=== PATIENT | female | born 1945 | race Caucasian/White ===

== ENCOUNTER 2022-11-30 09:33 | Inpatient (IN) ==
--- NOTE | 2022-11-30 10:03 | Emergency Department Note ---
Impression & Plan Acute alteration in mental status, COVID-19, Urinary tract infection ED Provider Note NAME: ELEAZAR HOPKINS AGE: 76 SEX: F : 1945 ARRIVES VIA: Walk-In INFORMANT: Patient, ED PROVIDER(S): Sheldon Burt DO CHIEF COMPLAINT: Weakness HPI: The patient is a 76-year-old female who presented to the emergency department for an evaluation of generalized weakness and cough. The patient was at her normal baseline health yesterday but overnight she started having problems with cough and generalized weakness. She has had difficulty ambu lating. There was a reported fall but this was not witnessed. The patient denies having any back pain or abdominal pain. The patient denies having any fevers but she has had a productive cough. She does complain of some difficulty breathing. Her family members who present with her also feel that she is off her baseline mental status. ROS: See above HPI for pertinent positives & negatives. A total of 10 systems reviewed and were otherwise negative. PAST MEDICAL HISTORY: See Below PAST SURGICAL HISTORY: See Below FAMILY HISTORY: See Below SOCIAL HISTORY: See Below HOME MEDICATIONS: See Below ALLERGIES: See Below VITALS: See Below PHYSICAL EXAMINATION: GENERAL: The patient is awake to verbal commands. She does appear to be somewhat listless and tired. EYES: The conjunctivae are clear. The pupils are round and reactive. EARS, NOSE, MOUTH AND THROAT: The nose is without any evidence of any deformity. Mucous membranes are dry. NECK: The neck is nontender and supple. RESPIRATORY: Shallow respirations were noted. Diminished breath sounds are noted in the left lung field. There is no tachypnea or conversational dyspnea. CARDIOVASCULAR: Regular rate and rhythm noted there no murmurs rubs or gallops normal S1 normal S2. GASTROINTESTINAL: The abdomen is soft. Abdomen is nontender. BACK: No midline tenderness or or step-off noted range of motion in flexion extension as well as rotation no signs of muscle spasm noted MUSCULOSKELETAL/EXTREMITIES: There is no evidence of gross deformity full range of motion is noted in the hips and shoulders. SKIN: Skin is warm and dry. Trace pedal edema was noted bilaterally. NEUROLOGIC: Patient is awake and oriented to person and place. She does recognize her family members. Strength was diminished but symmetric. Gait was shuffling. MEDICAL DECISION MAKING: The patient is a 76-year-old female who presented to the emergency department for an evaluation of altered mental status. The patient presented with family members. They noticed that she was very confused compared to baseline. The patient also has a reported fall from last night. This was not witnessed. The patient was awake and alert but does not appear to be at baseline according to family risk. I discussed the patient's laboratory and radiographic studies with the family. Given her ongoing confusion I also discussed her condition with the on-call [facility] hospitalist. They have agreed to evaluate the patient in the emergency department for further management and disposition. The patient was not significantly hypoxic. Triage Nursing notes reviewed. Prior medical records reviewed Vital Signs: reviewed and remarkable for no significant abnormalities Differential diagnosis: Infection, dehydration, metabolic abnormality, hypo/hyperglycemia, electrolyte disturbance, anemia, hypoxia, cardiac sources, intracerebral event, toxicologic, neurologic, as well as other pathologies. ER treatment provided: See below Diagnostics interpreted by me: ECG: EKG was obtained in the emergency department. My interpretation is normal sinus rhythm at 74 bpm. There was no ectopy. Inferior and low lateral ST depressions were noted. This was compared to a tracing from September 17, 2004. [address] abnormalities were noted on the previous tracing. Cardiac Monitoring: An order was placed for continuous cardiac monitoring. The monitor shows a rate of 73 bpm with sinus rhythm. Laboratory studies: As stated above and show below. Imaging studies: See below. Radiographic imaging was reviewed by myself Consultation(s): I discussed this case with Dr. Griffin who was on-call for the [facility] hospitalist group. Past Med/Surg History Medical History History of colon polyps History of COVID-19 01/2020 [place]; congestion, body aches; denies lingering symptoms Orbital mass Rt - being monitored Overactive bladder Surgical History History of arthroscopic knee surgery History of colonoscopy History of hysterectomy Family History Father Lung cancer Aunt Breast cancer Mother Hypertension Denies family history of Ovarian cancer Prostate cancer Diabetes Myocardial infarction Colorectal cancer Social History Smoking Status: Never smoker Second Hand Exposure: No; Do You Dip or Chew Tobacco: No; Hx Alcohol Use: No Hx Substance Use: No Preferred Language: French Communication Ability: Effective Visual Impairment: Limited Hearing Ability: Normal Tyre Builder Required: No Beliefs That Will Affect Care: None marital status: Current Living Situation: Alone current occupational status: retired How many Children do You have: 3 Feels Safe at Home: Yes Childhood Exposure to Second-Hand Smoke: Yes Diet: regular caffeine: Yes (coffee) during the past year weight has: remained stable Dental Care, Regularly: Yes Physical Activity Frequency: 1-2 Times per Week Seatbelt Use: always Sunscreen Use: No Assistive Devices: Denture - Upper, Denture - Lower and Glasses Allergies Allergies Allergy/AdvReac Type Severity Reaction Status Date / Time No Known Allergies Allergy Verified 09/13/22 14:35 Home Meds Home Medications Medication Instructions Recorded Confirmed ibuprofen 200 mg tablet 200 mg PO Q6H PRN Pain 09/27/19 11/30/22 loteprednol etabonate 0.5 % eye 1 drp ophthalmic (eye) QID 03/03/20 11/30/22 gel drops (Lotemax) travoprost (benzalkonium) 0.004 % 1 drp ophthalmic (eye) DAILY 03/03/20 11/30/22 eye drops aspirin 81 mg tablet,delayed 81 mg PO QAM 06/16/20 11/30/22 release latanoprost 0.005 % eye drops 1 drp ophthalmic (eye) QPM 09/02/21 11/30/22 Previous Rx's Medication Instructions Recorded oxybutynin chloride 5 mg 5 mg PO QAM #90 tabs 12/16/21 tablet,extended release 24 hr donepezil 10 mg tablet 10 mg PO QAM #90 tabs 03/08/22 escitalopram oxalate 5 mg tablet 5 mg PO DAILY #90 tabs 03/17/22 hydrochlorothiazide 25 mg tablet 25 mg PO QAM #30 tabs 06/14/22 triamcinolone acetonide 0.1 % 1 applic topical BID PRN itching 06/30/22 topical cream #80 grams memantine 10 mg tablet 10 mg PO BID 90 days #180 tabs 09/13/22 losartan 50 mg tablet 50 mg PO QAM #90 tabs 10/31/22 atorvastatin 20 mg tablet 20 mg PO QPM #90 tabs 11/28/22 Results & Data (ED) Vital Signs Vital Signs - 24 hr 11/30/22 09:34 11/30/22 09:49 11/30/22 11:31 Temperature 37.4 C Temperature Source Temporal Artery Scan Pulse Rate 84 79 Pulse Rate [Right Finger] 63 Respiratory Rate 16 16 Respiratory Effort / Characteristics Non-Labored Spontaneous Non-Labored Spontaneous Respiratory Depth Normal Normal Respiratory Pattern Regular Regular Blood Pressure 116/72 Blood Pressure [Right Arm] 114/64 Blood Pressure Mean 86 Blood Pressure Mean [Right Arm] 80 Blood Pressure Position Sitting Blood Pressure Position [Right Arm] Lying Pulse Oximetry 96 92 Oxygen Delivery Method Room Air Room Air Sepsis Recent Fever Within 48 Hours No Sepsis New/Unexplained Change in Mental Status N/A Sepsis Action Taken by Nursing No Action Required 11/30/22 10:06 11/30/22 10:15 11/30/22 10:30 Temperature Temperature Source Pulse Rate 87 74 Pulse Rate [Right Finger] Respiratory Rate 18 20 Respiratory Effort / Characteristics Respiratory Depth Respiratory Pattern Blood Pressure 121/78 100/66 102/65 Blood Pressure [Right Arm] Blood Pressure Mean 98 75 80 Blood Pressure Mean [Right Arm] Blood Pressure Position Blood Pressure Position [Right Arm] Pulse Oximetry 94 93 95 Oxygen Delivery Method Sepsis Recent Fever Within 48 Hours Sepsis New/Unexplained Change in Mental Status Sepsis Action Taken by Nursing 11/30/22 10:45 11/30/22 11:01 11/30/22 11:15 Temperature Temperature Source Pulse Rate 68 63 65 Pulse Rate [Right Finger] Respiratory Rate 22 22 20 Respiratory Effort / Characteristics Respiratory Depth Respiratory Pattern Blood Pressure 103/68 117/72 104/61 Blood Pressure [Right Arm] Blood Pressure Mean 72 92 75 Blood Pressure Mean [Right Arm] Blood Pressure Position Blood Pressure Position [Right Arm] Pulse Oximetry 95 93 93 Oxygen Delivery Method Sepsis Recent Fever Within 48 Hours Sepsis New/Unexplained Change in Mental Status Sepsis Action Taken by Nursing 11/30/22 11:30 11/30/22 11:31 11/30/22 11:45 Temperature Temperature Source Pulse Rate 65 65 Pulse Rate [Right Finger] Respiratory Rate 20 16 Respiratory Effort / Characteristics Respiratory Depth Respiratory Pattern Blood Pressure 113/68 114/64 123/71 Blood Pressure [Right Arm] Blood Pressure Mean 84 76 86 Blood Pressure Mean [Right Arm] Blood Pressure Position Blood Pressure Position [Right Arm] Pulse Oximetry 92 94 Oxygen Delivery Method Sepsis Recent Fever Within 48 Hours Sepsis New/Unexplained Change in Mental Status Sepsis Action Taken by Nursing 11/30/22 12:00 11/30/22 12:15 11/30/22 14:06 Temperature Temperature Source Pulse Rate 67 68 Pulse Rate [Right Finger] 73 Respiratory Rate 20 22 16 Respiratory Effort / Characteristics Non-Labored Spontaneous Respiratory Depth Normal Respiratory Pattern Blood Pressure 129/85 131/78 Blood Pressure [Right Arm] 114/72 Blood Pressure Mean 101 93 Blood Pressure Mean [Right Arm] 86 Blood Pressure Position Blood Pressure Position [Right Arm] Lying Pulse Oximetry 95 93 93 Oxygen Delivery Method Room Air Sepsis Recent Fever Within 48 Hours Sepsis New/Unexplained Change in Mental Status Sepsis Action Taken by Nursing 11/30/22 14:09 Temperature Temperature Source Pulse Rate 73 Pulse Rate [Right Finger] Respiratory Rate Respiratory Effort / Characteristics Respiratory Depth Respiratory Pattern Blood Pressure Blood Pressure [Right Arm] Blood Pressure Mean Blood Pressure Mean [Right Arm] Blood Pressure Position Blood Pressure Position [Right Arm] Pulse Oximetry Oxygen Delivery Method Sepsis Recent Fever Within 48 Hours Sepsis New/Unexplained Change in Mental Status Sepsis Action Taken by Prison Medications Current Medication List: was personally reviewed by me Laboratory Data Attestation: I reviewed the patient's lab results. 11/30/22 10:00 11/30/22 10:00 Lab Results 11/30/22 11/30/22 11/30/22 Range/Units 10:00 10:00 10:00 WBC 8.28 (4.8-10.8) K/ul RBC 4.58 (4.20-5.40) M/uL Hgb 13.6 (12.0-16.0) g/dl Hct 39.6 (37.0-47.0) % MCV 86.5 (80.0-100.0) fL MCH 29.7 (25.0-34.0) pg MCHC 34.3 (32.0-36.0) g/dL RDW Std Deviation 40.7 (36.4-46.3) fL RDW Coeff of González 13.0 (11.5-14.5) % Plt Count 294 (130-400) K/uL MPV 9.7 (9.4-12.4) fL Immature Gran % (Auto) 0.4 % Neut % (Auto) 77.1 % Lymph % (Auto) 13.4 % [place] % (Auto) 8.8 % Eos % (Auto) 0.1 % Baso % (Auto) 0.2 % Neut # (Auto) 6.38 (1.40-6.50) K/uL Lymph # (Auto) 1.11 L (1.20-3.40) K/uL [place] # (Auto) 0.73 H (0.11-0.59) K/uL Eos # (Auto) 0.01 (0.00-0.50) K/uL Baso # (Auto) 0.02 (0.00-0.20) K/uL Immature Gran # (Auto) 0.03 (0.01-0.20) K/uL PT (9.0-12.0) Seconds INR (0.9-1.1) APTT (21.0-31.0) Seconds PTT Ratio VBG pH (7.36-7.41) VBG pCO2 (38-50) mmHg VBG pO2 mmHg VBG HCO3 mmol/L VBG O2 Saturation % VBG Base Excess mEq/L Sodium 137 (136-145) mmol/L Potassium 3.3 L (3.5-5.1) mmol/L Chloride 99 (98-107) mmol/L Carbon Dioxide 28 (21-32) mmol/L Anion Gap 10 (3-11) BUN 14 (6-23) mg/dl Creatinine 0.72 (0.6-1.2) mg/dl Est Cr Clr Drug Dosing 92.2 ml/min Est GFR ( Amer) 93.6 ml/min Est GFR (Non-Af Amer) 80.8 ml/min BUN/Creatinine Ratio 19.4 (10-20) Glucose 121 H (70-99(Fasting)) mg/dl Lactate 2.5 H* (0.4-2.0) mmol/L Calcium 9.4 (8.6-10.3) mg/dl Magnesium 1.9 (1.7-2.4) mg/dl Total Bilirubin 0.7 (0.2-1.0) mg/dl Direct Bilirubin 0.1 (0-0.2) mg/dl AST 21 (13-39) U/L ALT 17 (7-52) U/L Alkaline Phosphatase 94 (34-104) U/L Troponin I High Sens 10.7 (0-14) pg/ml Total Protein 7.5 (6.0-8.3) gm/dl Albumin 4.2 (3.4-5.0) gm/dl Procalcitonin (0-0.5) ng/ml Urine Color Urine Appearance (Clear) Urine pH (4.5-7.5) Ur Specific [place] (1.000-1.030) Urine Protein (Negative) Urine Glucose (UA) (Negative) Urine Ketones (Negative) Urine Blood (Negative) Urine Nitrite (Negative) Urine Bilirubin (Negative) Urine Urobilinogen (Negative) Ur Leukocyte Esterase (Negative) Urine WBC (Auto) (0-5) /hpf Urine RBC (Auto) (0-4) /hpf U Hyaline Cast (Auto) (0-5) /lpf U Epithel Cells (Auto) (0-5) /lpf Urine Bacteria (Auto) (Negative) Urine Mucus (None Prsent) Urine Yeast Adenovirus (PCR) (NotDetected) B. pertussis DNA (PCR) (NotDetected) B.parapertussis DNA PCR (NotDetected) C. pneumoniae DNA (PCR) (NotDetected) Coronavirus OC43 (PCR) (NotDetected) Coronavirus HKU1 (PCR) (NotDetected) Coronavirus 229E (PCR) (NotDetected) SARS-CoV-2 (PCR) (NotDetected) Coronavirus NL63 (PCR) (NotDetected) Human Metapneumovir PCR (NotDetected) Influenza Type A (PCR) (NotDetected) Influenza Type B (PCR) (NotDetected) M. pneumoniae (PCR) (NotDetected) Parainfluenza 1 (PCR) (NotDetected) Parainfluenza 2 (PCR) (NotDetected) Parainfluenza 3 (PCR) (NotDetected) Parainfluenza 4 (PCR) (NotDetected) RSV (PCR) (NotDetected) Entero/Rhino (PCR) (NotDetected) 11/30/22 11/30/22 11/30/22 Range/Units 10:00 10:00 10:09 WBC (4.8-10.8) K/ul RBC (4.20-5.40) M/uL Hgb (12.0-16.0) g/dl Hct (37.0-47.0) % MCV (80.0-100.0) fL MCH (25.0-34.0) pg MCHC (32.0-36.0) g/dL RDW Std Deviation (36.4-46.3) fL RDW Coeff of González (11.5-14.5) % Plt Count (130-400) K/uL MPV (9.4-12.4) fL Immature Gran % (Auto) % Neut % (Auto) % Lymph % (Auto) % [place] % (Auto) % Eos % (Auto) % Baso % (Auto) % Neut # (Auto) (1.40-6.50) K/uL Lymph # (Auto) (1.20-3.40) K/uL [place] # (Auto) (0.11-0.59) K/uL Eos # (Auto) (0.00-0.50) K/uL Baso # (Auto) (0.00-0.20) K/uL Immature Gran # (Auto) (0.01-0.20) K/uL PT 11.8 (9.0-12.0) Seconds INR 1.1 (0.9-1.1) APTT 26.3 (21.0-31.0) Seconds PTT Ratio 0.9 VBG pH 7.46 H (7.36-7.41) VBG pCO2 42 (38-50) mmHg VBG pO2 37 mmHg VBG HCO3 30 mmol/L VBG O2 Saturation 66.1 % VBG Base Excess 5.4 mEq/L Sodium (136-145) mmol/L Potassium (3.5-5.1) mmol/L Chloride (98-107) mmol/L Carbon Dioxide (21-32) mmol/L Anion Gap (3-11) BUN (6-23) mg/dl Creatinine (0.6-1.2) mg/dl Est Cr Clr Drug Dosing ml/min Est GFR ( Amer) ml/min Est GFR (Non-Af Amer) ml/min BUN/Creatinine Ratio (10-20) Glucose (70-99(Fasting)) mg/dl Lactate (0.4-2.0) mmol/L Calcium (8.6-10.3) mg/dl Magnesium (1.7-2.4) mg/dl Total Bilirubin (0.2-1.0) mg/dl Direct Bilirubin (0-0.2) mg/dl AST (13-39) U/L ALT (7-52) U/L Alkaline Phosphatase (34-104) U/L Troponin I High Sens (0-14) pg/ml Total Protein (6.0-8.3) gm/dl Albumin (3.4-5.0) gm/dl Procalcitonin < 0.05 (0-0.5) ng/ml Urine Color Urine Appearance (Clear) Urine pH (4.5-7.5) Ur Specific [place] (1.000-1.030) Urine Protein (Negative) Urine Glucose (UA) (Negative) Urine Ketones (Negative) Urine Blood (Negative) Urine Nitrite (Negative) Urine Bilirubin (Negative) Urine Urobilinogen (Negative) Ur Leukocyte Esterase (Negative) Urine WBC (Auto) (0-5) /hpf Urine RBC (Auto) (0-4) /hpf U Hyaline Cast (Auto) (0-5) /lpf U Epithel Cells (Auto) (0-5) /lpf Urine Bacteria (Auto) (Negative) Urine Mucus (None Prsent) Urine Yeast Adenovirus (PCR) (NotDetected) B. pertussis DNA (PCR) (NotDetected) B.parapertussis DNA PCR (NotDetected) C. pneumoniae DNA (PCR) (NotDetected) Coronavirus OC43 (PCR) (NotDetected) Coronavirus HKU1 (PCR) (NotDetected) Coronavirus 229E (PCR) (NotDetected) SARS-CoV-2 (PCR) (NotDetected) Coronavirus NL63 (PCR) (NotDetected) Human Metapneumovir PCR (NotDetected) Influenza Type A (PCR) (NotDetected) Influenza Type B (PCR) (NotDetected) M. pneumoniae (PCR) (NotDetected) Parainfluenza 1 (PCR) (NotDetected) Parainfluenza 2 (PCR) (NotDetected) Parainfluenza 3 (PCR) (NotDetected) Parainfluenza 4 (PCR) (NotDetected) RSV (PCR) (NotDetected) Entero/Rhino (PCR) (NotDetected) 11/30/22 11/30/22 11/30/22 Range/Units 10:14 12:04 13:30 WBC (4.8-10.8) K/ul RBC (4.20-5.40) M/uL Hgb (12.0-16.0) g/dl Hct (37.0-47.0) % MCV (80.0-100.0) fL MCH (25.0-34.0) pg MCHC (32.0-36.0) g/dL RDW Std Deviation (36.4-46.3) fL RDW Coeff of González (11.5-14.5) % Plt Count (130-400) K/uL MPV (9.4-12.4) fL Immature Gran % (Auto) % Neut % (Auto) % Lymph % (Auto) % [place] % (Auto) % Eos % (Auto) % Baso % (Auto) % Neut # (Auto) (1.40-6.50) K/uL Lymph # (Auto) (1.20-3.40) K/uL [place] # (Auto) (0.11-0.59) K/uL Eos # (Auto) (0.00-0.50) K/uL Baso # (Auto) (0.00-0.20) K/uL Immature Gran # (Auto) (0.01-0.20) K/uL PT (9.0-12.0) Seconds INR (0.9-1.1) APTT (21.0-31.0) Seconds PTT Ratio VBG pH (7.36-7.41) VBG pCO2 (38-50) mmHg VBG pO2 mmHg VBG HCO3 mmol/L VBG O2 Saturation % VBG Base Excess mEq/L Sodium (136-145) mmol/L Potassium (3.5-5.1) mmol/L Chloride (98-107) mmol/L Carbon Dioxide (21-32) mmol/L Anion Gap (3-11) BUN (6-23) mg/dl Creatinine (0.6-1.2) mg/dl Est Cr Clr Drug Dosing ml/min Est GFR ( Amer) ml/min Est GFR (Non-Af Amer) ml/min BUN/Creatinine Ratio (10-20) Glucose (70-99(Fasting)) mg/dl Lactate 1.9 (0.4-2.0) mmol/L Calcium (8.6-10.3) mg/dl Magnesium (1.7-2.4) mg/dl Total Bilirubin (0.2-1.0) mg/dl Direct Bilirubin (0-0.2) mg/dl AST (13-39) U/L ALT (7-52) U/L Alkaline Phosphatase (34-104) U/L Troponin I High Sens (0-14) pg/ml Total Protein (6.0-8.3) gm/dl Albumin (3.4-5.0) gm/dl Procalcitonin (0-0.5) ng/ml Urine Color Yellow Urine Appearance Cloudy A (Clear) Urine pH 6.5 (4.5-7.5) Ur Specific [place] 1.019 (1.000-1.030) Urine Protein Negative (Negative) Urine Glucose (UA) Negative (Negative) Urine Ketones Negative (Negative) Urine Blood Negative (Negative) Urine Nitrite Negative (Negative) Urine Bilirubin Negative (Negative) Urine Urobilinogen Negative (Negative) Ur Leukocyte Esterase 2+ H (Negative) Urine WBC (Auto) >30 H (0-5) /hpf Urine RBC (Auto) 0-4 (0-4) /hpf U Hyaline Cast (Auto) 1-5 (0-5) /lpf U Epithel Cells (Auto) >30 H (0-5) /lpf Urine Bacteria (Auto) 1+ H (Negative) Urine Mucus Present A (None Prsent) Urine Yeast Not Reportable Adenovirus (PCR) Not Detected (NotDetected) B. pertussis DNA (PCR) Not Detected (NotDetected) B.parapertussis DNA PCR Not Detected (NotDetected) C. pneumoniae DNA (PCR) Not Detected (NotDetected) Coronavirus OC43 (PCR) Not Detected (NotDetected) Coronavirus HKU1 (PCR) Not Detected (NotDetected) Coronavirus 229E (PCR) Not Detected (NotDetected) SARS-CoV-2 (PCR) DETECTED A* (NotDetected) Coronavirus NL63 (PCR) Not Detected (NotDetected) Human Metapneumovir PCR Not Detected (NotDetected) Influenza Type A (PCR) Not Detected (NotDetected) Influenza Type B (PCR) Not Detected (NotDetected) M. pneumoniae (PCR) Not Detected (NotDetected) Parainfluenza 1 (PCR) Not Detected (NotDetected) Parainfluenza 2 (PCR) Not Detected (NotDetected) Parainfluenza 3 (PCR) Not Detected (NotDetected) Parainfluenza 4 (PCR) Not Detected (NotDetected) RSV (PCR) Not Detected (NotDetected) Entero/Rhino (PCR) Not Detected (NotDetected) Administered Medications Acetaminophen (Acetaminophen 325 Mg Tab) 650 mg PO Q4H PRN PRN Reason: pain/fever Stop: 12/30/22 13:05 Last Admin: 11/30/22 13:38 Dose: 650 mg Documented By: CPB Discontinued Medications Sodium Chloride (Nss) 1,000 mls @ 999 mls/hr IV .Q1H1M ONE Stop: 11/30/22 12:13 Last Infusion: 11/30/22 12:34 Dose: 0 mls/hr Documented By: Admin: 11/30/22 11:27 Dose: 999 mls/hr Documented By: CPB Lidocaine (Lidocaine 5% 1 Patch) 1 patch TD NOW STA Stop: 11/30/22 13:07 Last Admin: 11/30/22 13:40 Dose: 1 patch Documented By: CPB Imaging Data Attestation: I personally reviewed and interpreted this imaging study as follows: My Impression: CT of the brain was obtained in the emergency department. My interpretation is no intracranial hemorrhage or mass effect, final report below 1 view chest x-ray was obtained in the emergency department. My interpretation is no free air or definite infiltrate, final report below. Radiologist's Impression: Cervical Spine CT 11/30/22 09:43 CT OF THE CERVICAL SPINE WITHOUT CONTRAST CLINICAL HISTORY: Fall. COMPARISON STUDY: No previous studies for comparison. TECHNIQUE: Helical axial images of the cervical spine were obtained without IV contrast. Sagittal and coronal reconstructions were viewed. Automated exposure control was utilized for the study. A dose lowering technique was utilized adhe ring to the principles of ALARA. FINDINGS: There is reversal of the cervical lordosis. No acute cervical spine fracture is noted. Severe multilevel facet arthrosis is present. Moderate multilevel degenerative disc disease most pronounced at C6-C7. Degenerative changes at the C1-C2 articulation are noted. There is no prevertebral edema. IMPRESSION: No acute cervical spine fracture or subluxation. ACT 112: Negative or not required by law. Electronically signed by: Rupesh Huntley M.D. 11/30/2022 11:16 AM Chest X-Ray 11/30/22 09:43 XR chest 1V portable HISTORY: 76 years-old Female Sepsis acute sepsis COMPARISON: None TECHNIQUE: AP view of the chest FINDINGS: Cardiac silhouette is mildly enlarged. No pneumothorax, pleural effusion, airspace consolidation or pulmonary edema. Bones of the chest appear grossly intact. IMPRESSION: No acute process. ACT 112: Negative or not required by law. The above report was generated using voice recognition software. It may contain grammatical, syntax or spelling errors. Electronically signed by: Fracisco Montenegro M.D. 11/30/2022 10:[address] 11/30/22 09:43 CT head/brain wo con CLINICAL HISTORY: 76 years-old Female with fall. Acute head trauma status post fall TECHNIQUE: Multiple axial CT images of the head were obtained without contrast. A dose lowering technique was utilized adhering to the principles of ALARA. CT DOSE: 1079.62 mGy.cm COMPARISON: CT cervical spine of same day FINDINGS: No acute intracranial hemorrhage, midline shift, intracranial mass, hydrocephalus, territorial ischemia or abnormal extra-axial collection. Involutional changes with white matter hypodensities suggestive of chronic microvascular ischemic disease. Senescent calcifications of the basal ganglia. The calvarium is intact. Mild mucosal thickening of the ethmoid air cells. Hypoplastic frontal sinuses. Clear mastoid air cells. Prior bilateral lens repair. IMPRESSION: No acute intracranial abnormality or calvarial fracture. ACT 112: Negative or not required by law. The above report was generated using voice recognition software. It may contain grammatical, syntax or spelling errors. Electronically signed by: Fracisco Montenegro M.D. 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 No acute fracture, dislocation or avascular necrosis. Unremarkable soft tissues. IMPRESSION: No acute fracture or dislocation. ACT 112: Negative or not required by law. The above report was generated using voice recognition software. It may contain grammatical, syntax or spelling errors. Electronically signed by: Fracisco Montenegro M.D. 11/30/2022 10:56 AM Discharge Plan Visit Data Chief Complaint: Illness Stated Complaint: CANT WALK,AMS,COUGHING,FELL X2,URINATING HERSELF ED Provider: Sheldon Burt Discharge Problem: Acute alteration in mental status, COVID-19, Urinary tract infection Patient Disposition: Being Evaluated by Hospitalist Forms Stand Alone Forms: [facility] Prescriptions Prescriptions: No Action oxybutynin chloride 5 mg tablet extended release 24hr 5 mg PO QAM Qty: 90 3RF escitalopram oxalate 5 mg tablet 5 mg PO DAILY Qty: 90 1RF hydrochlorothiazide 25 mg tablet 25 mg PO QAM Qty: 30 11RF losartan 50 mg tablet 50 mg PO QAM Qty: 90 3RF atorvastatin 20 mg tablet 20 mg PO QPM Qty: 90 3RF ibuprofen 200 mg tablet 200 mg PO Q6H PRN (Reason: Pain) travoprost (benzalkonium) 0.004 % drops 1 drp ophthalmic (eye) DAILY Lotemax 0.5 % drops,gel 1 drp ophthalmic (eye) QID Rx Instructions: three timmes a week latanoprost 0.005 % drops 1 drp ophthalmic (eye) QPM donepezil 10 mg tablet 10 mg PO QAM Qty: 90 3RF triamcinolone acetonide 0.1 % cream 1 applic topical BID PRN (Reason: itching) Qty: 80 5RF memantine 10 mg tablet 10 mg PO BID 90 Days Qty: 180 3RF aspirin 81 mg Tablet,Delayed Release (Dr/Ec) 81 mg PO QAM Referrals Referrals: Cherrie Montanez MD [Primary Care Provider] -
[2022-11-30 10:24] LABS: Base Excess VBG 5.4 mEq/L; HCO3 VBG 30 mmol/L; Oxygen Saturation VBG 66.1 %; PCO2 VBG 42 mmHg (38-50); PO2 VBG 37 mmHg; pH VBG 7.46 (7.36-7.41)
[2022-11-30 10:31] LABS: Basophils # (auto) 0.02 K/uL (0.00-0.20); Basophils % (auto) 0.2 %; Eosinophils # (auto) 0.01 K/uL (0.00-0.50); Eosinophils % (auto) 0.1 %; Hematocrit (blood only) 39.6 % (37.0-47.0); Hemoglobin 13.6 g/dl (12.0-16.0); Immature Granulocytes # (auto) 0.03 K/uL (0.01-0.20); Immature Granulocytes % (auto) 0.4 %; Lymphocytes # (auto) 1.11 K/uL (1.20-3.40); Lymphocytes % (auto) 13.4 %; Mean Corpuscular Hemoglobin 29.7 pg (25.0-34.0); Mean Corpuscular Hgb Conc 34.3 g/dL (32.0-36.0); Mean Corpuscular Volume 86.5 fL (80.0-100.0); Mean Platelet Volume 9.7 fL (9.4-12.4); Monocytes # (auto) 0.73 K/uL (0.11-0.59); Monocytes % (auto) 8.8 %; Neutrophils # (auto) 6.38 K/uL (1.40-6.50); Neutrophils % (auto) 77.1 %; Platelet Count 294 K/uL (130-400); RDW Standard Deviation 40.7 fL (36.4-46.3); Red Blood Count 4.58 M/uL (4.20-5.40); White Blood Count 8.28 K/ul (4.8-10.8)
--- NOTE | 2022-11-30 10:56 | XRay Report ---
XR chest 1V portable HISTORY: 76 years-old Female Sepsis acute sepsis COMPARISON: None TECHNIQUE: AP view of the chest FINDINGS: Cardiac silhouette is mildly enlarged. No pneumothorax, pleural effusion, airspace consolidation or p ulmonary edema. Bones of the chest appear grossly intact. IMPRESSION: No acute process. ACT 112: Negative or not required by law. The above report was generated using voice recognition software. It may contain grammatical, syntax o r spelling errors. Electronically signed by: Fracisco Montenegro M.D. 11/30/2022 10:54 AM
--- NOTE | 2022-11-30 10:57 | XRay Report ---
XR pelvis 1-2V routine HISTORY: 76 years-old Female fall acute pain of the pelvis status post fall COMPARISON: None TECHNIQUE: AP view of the pelvis FINDINGS: Moderate osteoarthritis of the hips with moderate degeneration of the SI joints. No acute fracture, d islocation or avascular necrosis. Unremarkable soft tissues. IMPRESSION: No acute fracture or dislocation. ACT 112: Negative or not required by law. The above report was generated using voice recognition software. It may contain grammatical, syntax o r spelling errors. Electronically signed by: Fracisco Montenegro M.D. 11/30/2022 10:56 AM
[2022-11-30 11:05] LABS: Albumin Level 4.2 gm/dl (3.4-5.0); BUN Creatinine Ratio 19.4 (10-20); Bilirubin Direct 0.1 mg/dl (0-0.2); Bilirubin,Total 0.7 mg/dl (0.2-1.0); Calcium 9.4 mg/dl (8.6-10.3); Creatinine Clr Calc Pharmacy 92.2 ml/min; Est GFR (African American) 93.6 ml/min; Est GFR (Non-African American) 80.8 ml/min; Magnesium 1.9 mg/dl (1.7-2.4); Potassium 3.3 mmol/L (3.5-5.1); Total Protein 7.5 gm/dl (6.0-8.3)
[2022-11-30 11:07] LABS: INR 1.1 (0.9-1.1); Partial Thromboplastin Ratio 0.9; Partial Thromboplastin Time 26.3 Seconds (21.0-31.0); Prothrombin Time 11.8 Seconds (9.0-12.0)
[2022-11-30 11:10] LABS: Troponin I High Sensitivity 10.7 pg/ml (0-14)
[2022-11-30] MEDS ORDERED: SODIUM CHLORIDE 0.9% 1,000 ML IV ONE (11:13)
--- NOTE | 2022-11-30 11:13 | CT Scan Report ---
CT head/brain wo con CLINICAL HISTORY: 76 years-old Female with fall. Acute head trauma status post fall TECHNIQUE: Multiple axial CT images of the head were obtained without contrast. A dose lowering tech nique was utilized adhering to the principles of ALARA. CT DOSE: 1079.62 mGy.cm COMPARISON: CT cervical spine of same day FINDINGS: No acute intracranial hemorrhage, midline shift, intracranial mass, hydrocephalus, territorial ischem ia or abnormal extra-axial collection. Involutional changes with white matter hypodensities suggestiv e of chronic microvascular ischemic disease. Senescent calcifications of the basal ganglia. The calvarium is intact. Mild mucosal thickening of the ethmoid air cells. Hypoplastic frontal sinus es. Clear mastoid air cells. Prior bilateral lens repair. IMPRESSION: No acute intracranial abnormality or calvarial fracture. ACT 112: Negative or not required by law. The above report was generated using voice recognition software. It may contain grammatical, syntax o r spelling errors. Electronically signed by: Fracisco Montenegro M.D. 11/30/2022 11:12 AM
--- NOTE | 2022-11-30 11:17 | CT Scan Report ---
CT OF THE CERVICAL SPINE WITHOUT CONTRAST CLINICAL HISTORY: Fall. COMPARISON STUDY: No previous studies for comparison. TECHNIQUE: Helical axial images of the cervical spine were obtained without IV contrast. Sagittal a nd coronal reconstructions were viewed. Automated exposure control was utilized for the study. A do se lowering technique was utilized adhering to the principles of ALARA. FINDINGS: There is reversal of the cervical lordosis. No acute cervical spine fracture is noted. Margo re multilevel facet arthrosis is present. Moderate multilevel degenerative disc disease most pronounc ed at C6-C7. Degenerative changes at the C1-C2 articulation are noted. There is no prevertebral edema . IMPRESSION: No acute cervical spine fracture or subluxation. ACT 112: Negative or not required by law. Electronically signed by: Rupesh Huntley M.D. 11/30/2022 11:16 AM
[2022-11-30 11:37] LABS: Adenovirus PCR Not Detected (NotDetected); Bordetella parapertussis PCR Not Detected (NotDetected); Bordetella pertussis PCR Not Detected (NotDetected); Chlamydia pneumoniae PCR Not Detected (NotDetected); Coronavirus 229E PCR Not Detected (NotDetected); Coronavirus HKU1 PCR Not Detected (NotDetected); Coronavirus NL63 PCR Not Detected (NotDetected); Coronavirus OC43PCR Not Detected (NotDetected); Human Metapneumovirus PCR Not Detected (NotDetected); Influenza A PCR Not Detected (NotDetected); Influenza B PCR Not Detected (NotDetected); Mycoplasma pneumoniae PCR Not Detected (NotDetected); Parainfluenza Virus 1 PCR Not Detected (NotDetected); Parainfluenza Virus 2 PCR Not Detected (NotDetected); Parainfluenza Virus 3 PCR Not Detected (NotDetected); Parainfluenza Virus 4 PCR Not Detected (NotDetected); Respiratory Syncytial VirusPCR Not Detected (NotDetected); Rhinovirus/Enterovirus PCR Not Detected (NotDetected)
[2022-11-30 11:59] LABS: Coronavirus CoV-2 (COVID19)PCR DETECTED (NotDetected)
--- NOTE | 2022-11-30 12:45 | History & Physical Report ---
Date of Service November 30, 2022 Assessment & Plan (1) COVID: Plan: Weakness, cough 2/2 COVID without hypoxia Without hypoxia With intermittent confusion and weakness Symptoms x24 hours Is COVID vaccinated and boosted Dexamethasone/remdesivir not indicated Patient feels too weak to return home currently. PT/OT pending. Polyuria without dysuria. UA pending. No leukocytosis, procalcitonin is negative. Low suspicion for UTI, if UA infected appearing add Rocephin otherwise antibiotics not currently indicated. Patient does have history of overactive bladder, but notes that symptoms seem worse than normal recently SPO2 goal greater than 90% COVID DVT prophylaxis Lactate initially elevated to 2.5, normalized to 1.9 after 1 L of fluid Patient is not septic at time of admission Patient does report on unwitnessed fall yesterday due to weakness. Denies loss of consciousness or head strike. Reports other than her chronic back pain she has no pain and assessment. CThead/CTC-spine/pelvis x-ray without acute abnormalities (2) Hyperlipidemia: Plan: Stable, chronic Continue statin (3) Depression with anxiety: Plan: Stable, chronic Continue Lexapro (4) Benign hypertension: Plan: Stable, chronic. Normotensive on admit. Continue hydrochlorothiazide/losartan/aspirin. Creatinine is at baseline on admission, no LOULOU. Follow cr daily. (5) Memory deficit: Plan: - Acute on chronic confusion, suspect metabolic encephalopathy 2/2 covid on chronic memory decline Continue donepezil/memantine Patient fatigued, but mentating at near normal baseline at time of admission - CT-H naf (6) Lower back pain: Plan: Chronic, no acute change. Continue Tylenol/lidocaine patches while inpatient (7) Hypokalemia: Plan: 3.3 on admission, repleted. Magnesium 1.9. Plan DVT prophylaxis: COVID DVT prophylaxis Disposition: Medical/surgical CODE STATUS: DNR/DNI Diet: Regular History of Present Illness Primary Care Provider: Cherrie Montanez MD Presents for 24 hours of illness and an unwitnessed fall without head strike or loss of consciousness which occurred 11/29/2022. Normally lives alone, is seen at the bedside with her 2 daughters present. Patient and her daughters report that [place] has had disorientation, frequent urination, +cough 'out of the blue since yesterday' Weakness all over, poor balance. No focal neurologic deficits/strength or sensory changes limited to face or a particular extremity.Seems 'not herself, out of it and delirious' per her two daughters. Very different for last 24 hours and has seemed intermittently confused, although does have a history of some cognitive decline on donepezil and memantine this is worse than usual. Reports she was normal 2 to 3 days ago, suddenly developed a cough, worsened global fatigue, and some intermittent confusion and delirium mostly last 24 hours. She has been peeing less more than normal, although denies any burning with this. No chest pain, chest pressure. No syncope, presyncope. No shortness of breath. Patient reports she feels better laying flat, but has low energy. No change of smell or taste. Did receive the COVID vaccine and booster. Has not noticed any chills/rigors/night sweats. No abdominal pain or flank pain. Does have chronic back pain which is sore, but not unusual for her. Denies other pain at time of admission Medical History: Reviewed Medications: Reviewed Surgical History: Reviewed Family history: Reviewed Allergies: Reviewed Social History: Review Code Status: Full Code Allergies Allergy/AdvReac Type Severity Reaction Status Date / Time No Known Allergies Allergy Verified 09/13/22 14:35 Home Medications Medication Instructions Recorded Confirmed Type ibuprofen 200 mg tablet 200 mg PO Q6H PRN Pain 09/27/19 11/30/22 History loteprednol etabonate 0.5 % eye 1 drp ophthalmic (eye) QID 03/03/20 11/30/22 History gel drops (Lotemax) travoprost (benzalkonium) 0.004 % 1 drp ophthalmic (eye) DAILY 03/03/20 11/30/22 History eye drops aspirin 81 mg tablet,delayed 81 mg PO QAM 06/16/20 11/30/22 History release latanoprost 0.005 % eye drops 1 drp ophthalmic (eye) QPM 09/02/21 11/30/22 History oxybutynin chloride 5 mg 5 mg PO QAM #90 tabs 12/16/21 11/30/22 Rx tablet,extended release 24 hr donepezil 10 mg tablet 10 mg PO QAM #90 tabs 03/08/22 11/30/22 Rx escitalopram oxalate 5 mg tablet 5 mg PO DAILY #90 tabs 03/17/22 11/30/22 Rx hydrochlorothiazide 25 mg tablet 25 mg PO QAM #30 tabs 06/14/22 11/30/22 Rx triamcinolone acetonide 0.1 % 1 applic topical BID PRN itching 06/30/22 11/30/22 Rx topical cream #80 grams memantine 10 mg tablet 10 mg PO BID 90 days #180 tabs 09/13/22 11/30/22 Rx losartan 50 mg tablet 50 mg PO QAM #90 tabs 10/31/22 11/30/22 Rx atorvastatin 20 mg tablet 20 mg PO QPM #90 tabs 11/28/22 11/30/22 Rx Past Med/Surg History Medical History History of colon polyps History of COVID-19 01/2020 [place]; congestion, body aches; denies lingering symptoms Orbital mass Rt - being monitored Overactive bladder Surgical History History of arthroscopic knee surgery History of colonoscopy History of hysterectomy Family History Father Lung cancer Aunt Breast cancer Mother Hypertension Denies family history of Ovarian cancer Prostate cancer Diabetes Myocardial infarction Colorectal cancer Social History Smoking Status: Never smoker Second Hand Exposure: No; Do You Dip or Chew Tobacco: No; Hx Alcohol Use: No Hx Substance Use: No Preferred Language: Armenian Communication Ability: Effective Visual Impairment: Limited Hearing Ability: Normal 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 Beliefs That Will Affect Care: None marital status: Current Living Situation: Alone current occupational status: retired How many Children do You have: 3 Feels Safe at Home: Yes Childhood Exposure to Second-Hand Smoke: Yes Diet: regular caffeine: Yes (coffee) during the past year weight has: remained stable Dental Care, Regularly: Yes Physical Activity Frequency: 1-2 Times per Week Seatbelt Use: always Sunscreen Use: No Assistive Devices: Denture - Upper, Denture - Lower and Glasses Review of Systems Review of Systems: All systems reviewed & are unremarkable except as noted in HPI & below Physical Exam Physical Exam: General: A&Ox3. NAD. Cooperative. HEENT: Atraumatic, normocephalic. PERLAA. Vision/hearing intact Pulm: CTAB A&P. -wheezes, -rales, -rhonchi. Symmetrical chest rise. No increased work of breathing. No respiratory distress. Cardiac: RRR, -mrg. Radial pulses intact and symmetrical. Abdominal: Nontender, nondistended, soft. BS present. Ext: Warm, dry. No edema. 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 No focal strength deficits. Sensation intact to soft touch in hands and feet Results & Data Results & Data Vital Signs (Past 12 Hours) Vital Signs Temp Pulse Pulse Resp BP BP Pulse Ox 11/30/22 12:15 68 22 131/78 93 11/30/22 12:00 67 20 129/85 95 11/30/22 11:45 65 16 123/71 94 11/30/22 11:31 114/64 11/30/22 11:30 65 20 113/68 92 11/30/22 11:15 65 20 104/61 93 11/30/22 11:01 63 22 117/72 93 11/30/22 10:45 68 22 103/68 95 11/30/22 10:30 102/65 95 11/30/22 10:15 74 20 100/66 93 11/30/22 10:06 87 18 121/78 94 11/30/22 11:31 63 16 114/64 92 11/30/22 09:49 79 11/30/22 09:34 37.4 C 84 16 116/72 96 O2 Del Method 11/30/22 12:15 11/30/22 12:00 11/30/22 11:45 11/30/22 11:31 11/30/22 11:30 11/30/22 11:15 11/30/22 11:01 11/30/22 10:45 11/30/22 10:30 11/30/22 10:15 11/30/22 10:06 11/30/22 11:31 Room Air 11/30/22 09:49 11/30/22 09:34 Room Air PG Care Time/CCT Total # of Minutes Spent Total Time Spent with Patient: Total time spent is greater than 50% in coordination of care (as documented) at patient's floor/unit and/or counseling patient: Coding Level of Care Code 83647 INT INP/OBS CARE MIN Diagnoses COVID U07.1 Hyperlipidemia E78.5 Depression with anxiety F41.8 Benign hypertension I10 Memory deficit R41.3 Lower back pain M54.5 Hypokalemia E87.6
[2022-11-30] MEDS ORDERED: LIDOCAINE 5% 1 PATCH TD STA (13:06)
[2022-11-30] MEDS: ACETAMINOPHEN 325 MG TAB PO PRN ×2 (13:38→20:32)
[2022-11-30 13:52] LABS: Appearance Urine Cloudy (Clear); Bilirubin Urine Negative (Negative); Blood Urine Negative (Negative); Color Urine Yellow; Epithelial Cell Urine Auto >30 /lpf (0-5); Glucose Urine UA Negative (Negative); Ketones Urine Negative (Negative); Leukocyte Esterase Urine 2+ (Negative); Nitrite Urine Negative (Negative); Protein Urine Negative (Negative); Specific Gravity Urine 1.019 (1.000-1.030); Urobilinogen Urine Negative (Negative); WBC Urine Automated >30 /hpf (0-5); pH Urine 6.5 (4.5-7.5)
[2022-11-30 14:18] LABS: Mucus Urine Present (None Prsent)
[2022-11-30 14:19] LABS: Bacteria Urine Automated 1+ (Negative); RBC Urine Automated 0-4 /hpf (0-4)
[2022-11-30] MEDS ORDERED: cefTRIAXone SODIUM 2,000 MG/50 ML BAG IV STA (14:20)
[2022-11-30] MEDS ORDERED: ONDANSETRON INJ 2 MG/ML 2 ML VIAL IV PRN (15:39)
[2022-11-30] MEDS ORDERED: POLYETHYLENE (MIRALAX) 17 GM PACK PO PRN (15:39)
[2022-11-30] MEDS ORDERED: PLASMA-LYTE A 500 ML IV ONE (16:01)
--- NOTE | 2022-11-30 16:27 | Electrocardiogram Report ---
Test Reason : Blood Pressure : / mmHG Vent. Rate : 074 BPM Atrial Rate : 074 BPM P-R Int : 116 ms QRS Dur : 090 ms QT Int : 358 ms P-R-T Axes : 058 -06 205 degrees QTc Int : 397 ms Normal sinus rhythm Septal infarct , age undetermined Abnormal ECG When compared with ECG of 17-SEP-2004 10:56, Septal infarct is now Present T wave inversion now evident in Inferior leads T wave inversion now evident in Lateral leads Confirmed by Sheldon Arredondo ([id number]) on 11/30/2022 4:27:37 PM Referred By: REFERRED SELF Confirmed By:Sheldon Arredondo
[2022-11-30] MEDS: ENOXAPARIN INJ 40 MG/0.4 ML SYR SQ SCH (18:48)
[2022-11-30] MEDS: MEMANTINE HCL 10 MG TAB PO SCH (20:17)
[2022-11-30] MEDS: ATORVASTATIN 20 MG TAB PO SCH (20:17)
[2022-11-30] MEDS: LATANOPROST 0.005% OP SOLN 2.5 ML BTL OP SCH (20:17)
[2022-12-01] MEDS: BENZONATATE 100 MG CAPSULE PO PRN ×3 (02:51→21:17)
[2022-12-01] MEDS: ACETAMINOPHEN 325 MG TAB PO PRN ×3 (02:52→19:57)
[2022-12-01] MEDS: ENOXAPARIN INJ 40 MG/0.4 ML SYR SQ SCH (06:14)
[2022-12-01] MEDS: LOSARTAN POTASSIUM 50 MG TAB PO SCH (08:30)
[2022-12-01] MEDS: OXYBUTYNIN CHLORIDE XL 5 MG TABCR PO SCH (08:30)
[2022-12-01] MEDS: ESCITALOPRAM OXALATE 10 MG TAB PO SCH (08:30)
[2022-12-01] MEDS: ASPIRIN 81 MG ECTAB PO SCH (08:30)
[2022-12-01] MEDS: DONEPEZIL HCL 10 MG TAB PO SCH (08:31)
[2022-12-01] MEDS: hydroCHLOROthiazide 25 MG TAB PO SCH (08:32)
[2022-12-01 08:36] LABS: Basophils # (auto) 0.03 K/uL (0.00-0.20); Basophils % (auto) 0.6 %; Eosinophils # (auto) 0.03 K/uL (0.00-0.50); Eosinophils % (auto) 0.6 %; Hematocrit (blood only) 33.6 % (37.0-47.0); Hemoglobin 11.6 g/dl (12.0-16.0); Immature Granulocytes # (auto) 0.01 K/uL (0.01-0.20); Immature Granulocytes % (auto) 0.2 %; Lymphocytes # (auto) 1.06 K/uL (1.20-3.40); Lymphocytes % (auto) 21.5 %; Mean Corpuscular Hemoglobin 29.9 pg (25.0-34.0); Mean Corpuscular Hgb Conc 34.5 g/dL (32.0-36.0); Mean Corpuscular Volume 86.6 fL (80.0-100.0); Mean Platelet Volume 9.8 fL (9.4-12.4); Monocytes # (auto) 0.48 K/uL (0.11-0.59); Monocytes % (auto) 9.7 %; Neutrophils # (auto) 3.32 K/uL (1.40-6.50); Neutrophils % (auto) 67.4 %; Platelet Count 229 K/uL (130-400); RDW Coefficient of Variation 13.1 % (11.5-14.5); RDW Standard Deviation 41.4 fL (36.4-46.3); Red Blood Count 3.88 M/uL (4.20-5.40); White Blood Count 4.93 K/ul (4.8-10.8)
[2022-12-01 08:55] LABS: BUN Creatinine Ratio 12.9 (10-20); Calcium 8.6 mg/dl (8.6-10.3); Creatinine Clr Calc Pharmacy 66.4 ml/min; Est GFR (African American) 100.8 ml/min; Potassium 2.8 mmol/L (3.5-5.1)
[2022-12-01] MEDS ORDERED: POTASSIUM CHLORIDE CRTAB 20 MEQ TABCR PO STA (08:59)
[2022-12-01] MEDS ORDERED: TRAVOPROST 0.004% OP SCH (09:00)
[2022-12-01] MEDS: POTASSIUM CHLORIDE / WTR 10 MEQ/100 ML PLCT IV SCH ×4 (09:18→13:02)
[2022-12-01] MEDS: MEMANTINE HCL 10 MG TAB PO SCH ×2 (10:59→21:17)
[2022-12-01] MEDS: cefTRIAXone SODIUM 2,000 MG in DEXTROSE 5 % MINI-B 50 ML IV SCH (15:08)
--- NOTE | 2022-12-01 16:00 | Hospitalist Progress Note ---
Date of Service December 01, 2022 Assessment & Plan (1) COVID: Plan: Weakness, cough 2/2 COVID without hypoxia Without hypoxia With intermittent confusion and weakness Symptoms x24 hours Is COVID vaccinated and boosted Dexamethasone/remdesivir not indicated Patient feels too weak to return home currently. PT/OT on board UA suggestive of UTI. Patient was started on Rocephin. SPO2 goal greater than 90% COVID DVT prophylaxis Lactate initially elevated to 2.5, normalized to 1.9 after 1 L of fluid Patient is not septic at time of admission Patient does report on unwitnessed fall yesterday due to weakness. Denies loss of consciousness or head strike. Reports other than her chronic back pain she has no pain and assessment. CThead/CTC-spine/pelvis x-ray without acute abnormalities (2) Acute metabolic encephalopathy: Plan: Most likely secondary to COVID or UTI Improving but not back to baseline per daughter. Monitor for clinical improvement (3) Urinary tract infection: Plan: urinalysis suggestive Started on Rocephin Follow urine culture results and sensitivities. (4) Hyperlipidemia: Plan: Stable, chronic Continue statin (5) Depression with anxiety: Plan: Stable, chronic Continue Lexapro (6) Benign hypertension: Plan: Stable, chronic. Normotensive on admit. Continue hydrochlorothiazide/losartan/aspirin. Creatinine is at baseline on admission, no LOULOU. Follow cr daily. (7) Memory deficit: Plan: - Acute on chronic confusion, suspect metabolic encephalopathy 2/2 covid on chronic memory decline Continue donepezil/memantine Patient fatigued, but mentating at near normal baseline at time of admission - CT-H naf (8) Lower back pain: Plan: Chronic, no acute change. Continue Tylenol/lidocaine patches while inpatient (9) Hypokalemia: Plan: 3.3 on admission, repleted. Potassium 2.8 today. Replete further. Plan DVT prophylaxis: Lovenox CODE STATUS: DNR/DNI Diet: Regular Likely discharge in a day or 2 Admission and Anticipated Discharge Date Admission Date: November 30, 2022 Subjective patient feels better overall. Per daughter, patient is doing better from a mental status standpoint but not back to her usual baseline yet. Review of Systems Review of Systems: All systems reviewed & are unremarkable except as noted in Subjective Physical Exam Physical Exam: general: Awake, conversant. Pleasantly confused elderly female Heart: S1, S2/regular rate and rhythm, no murmur rubs or gallops Lungs: Clear to auscultation bilaterally. Normal effort Abdomen: Soft/nontender/nondistended. No hepatosplenomegaly Extremities: No clubbing/cyanosis. No edema Behavior: Appropriate, cooperative Results & Data Results & Data Vital Signs (Past 12 Hours) Vital Signs Temp Pulse Resp BP Pulse Ox O2 Del Method 12/01/22 14:58 36.9 C 69 18 132/83 92 Room Air 12/01/22 08:00 59 L 19 110/67 92 Room Air Laboratory Results Abnormal lab results 12/01/22 12/01/22 Range/Units 07:55 07:55 RBC 3.88 L (4.20-5.40) M/uL Hgb 11.6 L (12.0-16.0) g/dl Hct 33.6 L (37.0-47.0) % Lymph # (Auto) 1.06 L (1.20-3.40) K/uL Potassium 2.8 L (3.5-5.1) mmol/L PG Care Time/CCT Total # of Minutes Spent Total Time Spent with Patient: Total time spent is greater than 50% in coordination of care (as documented) at patient's floor/unit and/or counseling patient: Coding Level of Care Code 98298 SUB INP/OBS CARE 2/35MIN Diagnoses COVID U07.1 Acute metabolic encephalopathy G93.41 Urinary tract infection N39.0 Hematuria presence: without hematuria Urinary tract infection type: site unspecified Hyperlipidemia E78.5 Depression with anxiety F41.8 Benign hypertension I10 Memory deficit R41.3 Lower back pain M54.5 Hypokalemia E87.6 (3) Urinary tract infection Hematuria presence: without hematuria Urinary tract infection type: site unspecified Qualified Code(s): N39.0 - Urinary tract infection, site not specified
[2022-12-01] MEDS: LATANOPROST 0.005% OP SOLN 2.5 ML BTL OP SCH (19:58)
[2022-12-01] MEDS: ATORVASTATIN 20 MG TAB PO SCH (21:17)
[2022-12-02 07:30] LABS: Basophils # (auto) 0.03 K/uL (0.00-0.20); Basophils % (auto) 0.8 %; Eosinophils % (auto) 2.7 %; Hematocrit (blood only) 36.7 % (37.0-47.0); Hemoglobin 12.1 g/dl (12.0-16.0); Immature Granulocytes # (auto) 0.01 K/uL (0.01-0.20); Immature Granulocytes % (auto) 0.3 %; Lymphocytes # (auto) 1.22 K/uL (1.20-3.40); Lymphocytes % (auto) 32.9 %; Mean Corpuscular Hemoglobin 29.5 pg (25.0-34.0); Mean Corpuscular Volume 89.5 fL (80.0-100.0); Mean Platelet Volume 9.8 fL (9.4-12.4); Monocytes # (auto) 0.55 K/uL (0.11-0.59); Monocytes % (auto) 14.8 %; Neutrophils % (auto) 48.5 %; Platelet Count 224 K/uL (130-400); RDW Coefficient of Variation 13.2 % (11.5-14.5); White Blood Count 3.71 K/ul (4.8-10.8)
[2022-12-02 07:53] LABS: BUN Creatinine Ratio 13.4 (10-20); Calcium 8.7 mg/dl (8.6-10.3); Creatinine Clr Calc Pharmacy 61.4 ml/min; Est GFR (African American) 98.3 ml/min; Est GFR (Non-African American) 84.8 ml/min; Potassium 3.6 mmol/L (3.5-5.1)
[2022-12-02] MEDS: ENOXAPARIN INJ 40 MG/0.4 ML SYR SQ SCH (09:30)
[2022-12-02] MEDS: ASPIRIN 81 MG ECTAB PO SCH (09:32)
[2022-12-02] MEDS: ESCITALOPRAM OXALATE 10 MG TAB PO SCH (09:33)
[2022-12-02] MEDS: DONEPEZIL HCL 10 MG TAB PO SCH (09:33)
[2022-12-02] MEDS: hydroCHLOROthiazide 25 MG TAB PO SCH (09:34)
[2022-12-02] MEDS: MEMANTINE HCL 10 MG TAB PO SCH ×2 (09:35→21:23)
[2022-12-02] MEDS: LOSARTAN POTASSIUM 50 MG TAB PO SCH (09:35)
[2022-12-02] MEDS: OXYBUTYNIN CHLORIDE XL 5 MG TABCR PO SCH (09:36)
[2022-12-02] MEDS ORDERED: FUROSEMIDE INJ 20 MG/2 ML VIAL IV ONE (13:29)
[2022-12-02] MEDS: cefTRIAXone SODIUM 2,000 MG in DEXTROSE 5 % MINI-B 50 ML IV SCH (14:15)
--- NOTE | 2022-12-02 18:27 | Hospitalist Progress Note ---
Date of Service December 02, 2022 Assessment & Plan (1) COVID: Plan: Patient does not have COVID-pneumonia With intermittent confusion and weakness concern for metabolic encephalopathy from COVID and/or urinary tract infection present on admission Is COVID vaccinated and boosted Dexamethasone/remdesivir not indicated UA suggestive of UTI. Patient was started on Rocephin. Patient has only had 1 dose will recollect the urine if need be change antibiotics COVID DVT prophylaxis Lactate initially elevated to 2.5, normalized to 1.9 after 1 L of fluid CThead/CTC-spine/pelvis x-ray without acute abnormalities (2) Acute metabolic encephalopathy: Plan: Most likely secondary to COVID or UTI Improving but not back to baseline per daughter. Slightly worse on 12/02/2022 (3) Hyperlipidemia: Plan: Stable, chronic Continue statin (4) Depression with anxiety: Plan: Stable, chronic Continue Lexapro (5) Benign hypertension: Plan: Stable, chronic. Normotensive on admit. Continue hydrochlorothiazide/losartan/aspirin. Creatinine is at baseline on admission, no LOULOU. Follow cr daily. (6) Memory deficit: Plan: - Acute on chronic confusion, suspect metabolic encephalopathy 2/2 covid on chronic memory decline Continue donepezil/memantine (7) Lower back pain: Plan: Chronic, no acute change. Continue Tylenol/lidocaine patches while inpatient (8) Hypokalemia: Plan: . Replete Plan DVT prophylaxis: Lovenox CODE STATUS: DNR/DNI Diet: Regular Admission and Anticipated Discharge Date Admission Date: November 30, 2022 Subjective Patient seen in company of her daughter. Her confusion is worse than her baseline. Her initial urinalysis was polymicrobial and not useful. She is not exhibiting significant signs and symptoms of COVID-pneumonia she was slightly hypoxic but this was remedied with deep inspiration and likely was basis of atelectasis Physical Exam Physical Exam: Pleasantly confused does get some casual conversation questions correct Lungs are diminished at the bases otherwise are clear she is not tachypneic there are no rales Results & Data Results & Data Vital Signs (Past 12 Hours) Vital Signs Temp Pulse Resp BP Pulse Ox Pulse Ox Pulse Ox 12/02/22 15:34 97.9 F 61 19 105/71 94 12/02/22 13:20 93 12/02/22 13:10 86 L 12/02/22 08:00 12/02/22 11:51 91 91 12/02/22 11:06 98.4 F 85 19 107/74 91 12/02/22 10:04 97.9 F 58 L 16 127/80 90 Pulse Ox O2 Del Method O2 Flow Rate O2 Flow Rate O2 Flow Rate O2 Flow Rate 12/02/22 15:34 Nasal Cannula 3 12/02/22 13:20 Nasal Cannula 2 12/02/22 13:10 12/02/22 08:00 Room Air 12/02/22 11:51 92 0 0 0 12/02/22 11:06 Room Air 12/02/22 10:04 Room Air Laboratory Results Reviewed CBC reviewed chemistry PG Care Time/CCT Total # of Minutes Spent Total Time Spent with Patient: Total time spent is greater than 50% in coordination of care (as documented) at patient's floor/unit and/or counseling patient: Coding Level of Care Code 78114 SUB INP/OBS CARE 2/35MIN Diagnoses COVID U07.1 Acute metabolic encephalopathy G93.41 Hyperlipidemia E78.5 Depression with anxiety F41.8 Benign hypertension I10 Memory deficit R41.3 Lower back pain M54.5 Hypokalemia E87.6
[2022-12-02] MEDS: ATORVASTATIN 20 MG TAB PO SCH (21:23)
[2022-12-02] MEDS: LATANOPROST 0.005% OP SOLN 2.5 ML BTL OP SCH (21:23)
[2022-12-03] MEDS: BENZONATATE 100 MG CAPSULE PO PRN (01:47)
[2022-12-03 07:34] LABS: Basophils # (auto) 0.03 K/uL (0.00-0.20); Basophils % (auto) 0.7 %; Eosinophils # (auto) 0.18 K/uL (0.00-0.50); Eosinophils % (auto) 4.4 %; Hematocrit (blood only) 35.6 % (37.0-47.0); Lymphocytes # (auto) 1.74 K/uL (1.20-3.40); Lymphocytes % (auto) 42.4 %; Mean Corpuscular Hemoglobin 29.6 pg (25.0-34.0); Mean Corpuscular Hgb Conc 33.7 g/dL (32.0-36.0); Mean Corpuscular Volume 87.9 fL (80.0-100.0); Mean Platelet Volume 9.7 fL (9.4-12.4); Monocytes # (auto) 0.51 K/uL (0.11-0.59); Monocytes % (auto) 12.4 %; Neutrophils # (auto) 1.64 K/uL (1.40-6.50); Neutrophils % (auto) 40.1 %; Platelet Count 277 K/uL (130-400); RDW Coefficient of Variation 13.2 % (11.5-14.5); RDW Standard Deviation 42.2 fL (36.4-46.3); Red Blood Count 4.05 M/uL (4.20-5.40)
[2022-12-03 07:49] LABS: BUN Creatinine Ratio 17.9 (10-20); Calcium 8.9 mg/dl (8.6-10.3); Creatinine Clr Calc Pharmacy 52.5 ml/min; Est GFR (Non-African American) 73.3 ml/min; Potassium 3.2 mmol/L (3.5-5.1)
[2022-12-03] MEDS: ESCITALOPRAM OXALATE 10 MG TAB PO SCH (10:37)
[2022-12-03] MEDS: LOSARTAN POTASSIUM 50 MG TAB PO SCH (10:37)
[2022-12-03] MEDS: OXYBUTYNIN CHLORIDE XL 5 MG TABCR PO SCH (10:38)
[2022-12-03] MEDS: DONEPEZIL HCL 10 MG TAB PO SCH (10:38)
[2022-12-03] MEDS: ASPIRIN 81 MG ECTAB PO SCH (10:39)
[2022-12-03] MEDS: MEMANTINE HCL 10 MG TAB PO SCH ×2 (10:39→21:20)
[2022-12-03] MEDS: ENOXAPARIN INJ 40 MG/0.4 ML SYR SQ SCH (10:39)
[2022-12-03] MEDS: POTASSIUM CHLORIDE CRTAB 20 MEQ TABCR PO SCH ×2 (10:40→21:20)
[2022-12-03] MEDS: cefTRIAXone SODIUM 2,000 MG in DEXTROSE 5 % MINI-B 50 ML IV SCH (14:56)
--- NOTE | 2022-12-03 16:58 | Hospitalist Progress Note ---
Date of Service December 03, 2022 Assessment & Plan (1) COVID: Plan: Patient does not have COVID-pneumonia With intermittent confusion and weakness concern for metabolic encephalopathy from COVID and/or urinary tract infection present on admission Is COVID vaccinated and boosted Dexamethasone/remdesivir not indicated UA suggestive of UTI. Patient was started on Rocephin. Repeat urine culture shows pinpoint growth 3 incubating continue antibiotics and follow empirically will complete 72 hours at the minimum COVID DVT prophylaxis Lactate initially elevated to 2.5, normalized to 1.9 after 1 L of fluid CThead/CTC-spine/pelvis x-ray without acute abnormalities (2) Acute metabolic encephalopathy: Plan: Most likely secondary to COVID or UTI Improving baseline dementia with likely superimposed hospital delirium (3) Hyperlipidemia: Plan: Stable, chronic Continue statin (4) Depression with anxiety: Plan: Stable, chronic Continue Lexapro (5) Benign hypertension: Plan: Stable, chronic. Normotensive on admit. Continue hydrochlorothiazide/losartan/aspirin. Creatinine is at baseline on admission, no LOULOU. Follow cr daily. (6) Memory deficit: Plan: - Acute on chronic confusion, suspect metabolic encephalopathy 2/2 covid on chronic memory decline Continue donepezil/memantine (7) Lower back pain: Plan: Chronic, no acute change. Continue Tylenol/lidocaine patches while inpatient (8) Hypokalemia: Plan: . Replete additional repletion ordered 12/03 Plan DVT prophylaxis: Lovenox CODE STATUS: DNR/DNI Diet: Regular Admission and Anticipated Discharge Date Admission Date: December 02, 2022 Subjective Patient seen in company of her daughter. this is a different daughter that was present yesterday. This daughter seems to think that she may have waxing and waning confusion similar to her baseline. Her initial urinalysis was polymicrobial and not useful. She is not exhibiting significant signs and symptoms of COVID-pneumonia she was slightly hypoxic but this was remedied with deep inspiration and likely was basis of atelectasis She continues on treatment for suspected urinary tract infection in addition to her COVID. Physical Exam Physical Exam: Awake alert and appropriate though confused at times not recalling she is in a hospital. Results & Data Results & Data Vital Signs (Past 12 Hours) Vital Signs Temp Pulse Resp BP Pulse Ox O2 Del Method O2 Flow Rate 12/03/22 15:00 98.1 F 53 L 16 114/75 96 Nasal Cannula 2 12/03/22 11:48 97.7 F 55 L 16 112/76 95 Nasal Cannula 2 12/03/22 09:23 Nasal Cannula 2 12/03/22 07:28 98.2 F 50 L 16 129/77 97 Nasal Cannula 2.0 12/03/22 04:57 98.1 F 54 L 16 119/83 96 Nasal Cannula Laboratory Results Reviewed CBC reviewed chemistry. Supplemented potassium. PG Care Time/CCT Total # of Minutes Spent Total Time Spent with Patient: Total time spent is greater than 50% in coordination of care (as documented) at patient's floor/unit and/or counseling patient: Coding Level of Care Code 10446 SUB INP/OBS CARE 235MIN Diagnoses COVID U07.1 Acute metabolic encephalopathy G93.41 Hyperlipidemia E78.5 Depression with anxiety F41.8 Benign hypertension I10 Memory deficit R41.3 Lower back pain M54.5 Hypokalemia E87.6
[2022-12-03] MEDS: ATORVASTATIN 20 MG TAB PO SCH (21:20)
[2022-12-03] MEDS: LATANOPROST 0.005% OP SOLN 2.5 ML BTL OP SCH (21:20)
[2022-12-03] MEDS: ACETAMINOPHEN 325 MG TAB PO PRN (22:43)
[2022-12-04 08:14] LABS: Creatinine Clr Calc Pharmacy 53.4 ml/min; Est GFR (Non-African American) 73.3 ml/min
[2022-12-04 08:30] LABS: Thyroid Stimulating Hormone 0.926 uIu/ml (0.300-4.500)
[2022-12-04 08:32] LABS: T4 Free Thyroxine 0.9 ng/dl (0.61-1.60)
[2022-12-04 08:32] LABS: Lyme Ab IgM w/WB Rflx Negative (Negative)
[2022-12-04 08:50] LABS: Lyme Ab IgG w/WB Rflx Positive (Negative)
[2022-12-04] MEDS: POTASSIUM CHLORIDE CRTAB 20 MEQ TABCR PO SCH (09:33)
[2022-12-04] MEDS: MEMANTINE HCL 10 MG TAB PO SCH ×2 (09:33→21:36)
[2022-12-04] MEDS: OXYBUTYNIN CHLORIDE XL 5 MG TABCR PO SCH (09:34)
[2022-12-04] MEDS: DONEPEZIL HCL 10 MG TAB PO SCH (09:34)
[2022-12-04] MEDS: LOSARTAN POTASSIUM 50 MG TAB PO SCH (09:34)
[2022-12-04] MEDS: ESCITALOPRAM OXALATE 10 MG TAB PO SCH (09:35)
[2022-12-04] MEDS: ENOXAPARIN INJ 40 MG/0.4 ML SYR SQ SCH (09:36)
[2022-12-04] MEDS: ASPIRIN 81 MG ECTAB PO SCH (09:36)
--- NOTE | 2022-12-04 13:33 | Hospitalist Progress Note ---
Date of Service December 04, 2022 Assessment & Plan (1) COVID: Plan: Patient does not have COVID-pneumonia With intermittent confusion and weakness concern for metabolic encephalopathy from COVID and/or urinary tract infection present on admission, now also with l yme IGG, on ceftriaxone Is COVID vaccinated and boosted Dexamethasone/remdesivir not indicated UA suggestive of UTI. Patient was started on Rocephin. Repeat urine culture shows pinpoint growth 3 incubating continue antibiotics and follow empirically ,with lyme likely transtion to doxycycline at discharge to complete course while awaiting send out, maybe a chronic untreated infection COVID DVT prophylaxis Lactate initially elevated to 2.5, normalized to 1.9 after 1 L of fluid CThead/CTC-spine/pelvis x-ray without acute abnormalities (2) Acute metabolic encephalopathy: Plan: Most likely secondary to COVID or other infection Improving baseline dementia with likely superimposed hospital delirium (3) Hyperlipidemia: Plan: Stable, chronic Continue statin (4) Depression with anxiety: Plan: Stable, chronic Continue Lexapro (5) Benign hypertension: Plan: Stable, chronic. Normotensive on admit. Continue hydrochlorothiazide/losartan/aspirin. Creatinine is at baseline on admission, no LOULOU. Follow cr daily. (6) Memory deficit: Plan: - Acute on chronic confusion, suspect metabolic encephalopathy 2/2 covid on chronic memory decline, improving Continue donepezil/memantine (7) Lower back pain: Plan: Chronic, no acute change. Continue Tylenol/lidocaine patches while inpatient (8) Hypokalemia: Plan: . Replete additional repletion ordered 12/03 Plan DVT prophylaxis: Lovenox CODE STATUS: DNR/DNI Diet: Regular Admission and Anticipated Discharge Date Admission Date: December 02, 2022 Subjective Patient seen in company of her 2 daughters. Pt is much improved with regard to her mental status She is not exhibiting significant signs and symptoms of COVID-pneumonia she was slightly hypoxic but this was remedied with deep inspiration and likely was basis of atelectasis She continues on treatment for suspected urinary tract infection in addition to her COVID., due to lower heart rates lyme testing completed and shows elevated IGG Physical Exam Physical Exam: Awake alert and appropriate cardiac exam is regular lungs are clear Results & Data Results & Data Vital Signs (Past 12 Hours) Vital Signs Temp Pulse Resp BP Pulse Ox O2 Del Method O2 Flow Rate 12/04/22 08:30 97.5 F L 45 L 18 122/81 98 Nasal Cannula 2 12/04/22 08:17 Nasal Cannula 2 12/04/22 04:18 97.5 F L 45 L 17 116/71 98 Nasal Cannula 2 Laboratory Results reviewed creatinine, thyroid panel, Lyme testing discussed results with family PG Care Time/CCT Total # of Minutes Spent Total Time Spent with Patient: Total time spent is greater than 50% in coordination of care (as documented) at patient's floor/unit and/or counseling patient: Coding Level of Care Code 57985 SUB INP/OBS CARE 3/50MIN Diagnoses COVID U07.1 Acute metabolic encephalopathy G93.41 Hyperlipidemia E78.5 Depression with anxiety F41.8 Benign hypertension I10 Memory deficit R41.3 Lower back pain M54.5 Hypokalemia E87.6
[2022-12-04] MEDS: cefTRIAXone SODIUM 2,000 MG in DEXTROSE 5 % MINI-B 50 ML IV SCH (15:33)
[2022-12-04] MEDS: BENZONATATE 100 MG CAPSULE PO PRN (21:35)
[2022-12-04] MEDS: ATORVASTATIN 20 MG TAB PO SCH (21:36)
[2022-12-04] MEDS: LATANOPROST 0.005% OP SOLN 2.5 ML BTL OP SCH (21:36)
[2022-12-05] MEDS: DONEPEZIL HCL 10 MG TAB PO SCH (09:08)
[2022-12-05] MEDS: ENOXAPARIN INJ 40 MG/0.4 ML SYR SQ SCH (09:08)
[2022-12-05] MEDS: ASPIRIN 81 MG ECTAB PO SCH (09:08)
[2022-12-05] MEDS: ESCITALOPRAM OXALATE 10 MG TAB PO SCH (09:08)
[2022-12-05] MEDS: LOSARTAN POTASSIUM 50 MG TAB PO SCH (09:08)
[2022-12-05] MEDS: MEMANTINE HCL 10 MG TAB PO SCH (09:08)
[2022-12-05] MEDS: OXYBUTYNIN CHLORIDE XL 5 MG TABCR PO SCH (09:08)
--- NOTE | 2022-12-05 18:25 | Discharge Summary ---
Date of Service December 05, 2022 Admission HPI Per Admitting Provider Presents for 24 hours of illness and an unwitnessed fall without head strike or loss of consciousness which occurred 11/29/2022. Normally lives alone, is seen at the bedside with her 2 daughters present. Patient and her daughters report that [place] has had disorientation, frequent urination, +cough 'out of the blue since yesterday' Weakness all over, poor balance. No focal neurologic deficits/strength or sensory changes limited to face or a particular extremity.Seems 'not herself, out of it and delirious' per her two daughters. Very different for last 24 hours and has seemed intermittently confused, althmilvia powell does have a history of some cognitive decline on donepezil and memantine this is worse than usual. Reports she was normal 2 to 3 days ago, suddenly developed a cough, worsened global fatigue, and some intermittent confusion and delirium mostly last 24 hours. She has been peeing less more than normal, although denies any burning with this. No chest pain, chest pressure. No syncope, presyncope. No shortness of breath. Patient reports she feels better laying flat, but has low energy. No change of smell or taste. Did receive the COVID vaccine and booster. Has not noticed any chills/rigors/night sweats. No abdominal pain or flank pain. Does have chronic back pain which is sore, but not unusual for her. Denies other pain at time of admission Medical History: Reviewed Medications: Reviewed Surgical History: Reviewed Family history: Reviewed Allergies: Reviewed Social History: Review Code Status: Full Code Principal Diagnosis COVID infection metabolic encephalopathy from COVID and possible UTI present on admission subacute Lyme disease Discharge Exam awake and alert more appropriate no apparent distress Discharge Data Allergies Allergy/AdvReac Type Severity Reaction Status Date / Time No Known Allergies Allergy Verified 09/13/22 14:35 Consultations 11/30/22 12:27 ED Decision to Admit Stat Ordered Studies 11/30/22 09:43 CT cervical spine wo con Stat CT head/brain wo con Stat Hospital Course (1) COVID: Patient does not have COVID-pneumonia With intermittent confusion and weakness concern for metabolic encephalopathy from COVID and/or urinary tract infection present on admission, now also with lyme IGG, on ceftriaxone will complete doxycycline after discharge Is COVID vaccinated and boosted Dexamethasone/remdesivir was not indicated CThead/CTC-spine/pelvis x-ray without acute abnormalities (2) Acute metabolic encephalopathy: Most likely secondary to COVID or other infection Improving baseline dementia with likely superimposed hospital delirium (3) Hyperlipidemia: Stable, chronic Continue statin (4) Depression with anxiety: Stable, chronic Continue Lexapro (5) Benign hypertension: Stable, chronic. Normotensive on admit. Continue hydrochlorothiazide/losartan/aspirin. Creatinine is at baseline on admission, no LOULOU. (6) Memory deficit: - Acute on chronic confusion, suspect metabolic encephalopathy 2/2 covid on chronic memory decline, improving Continue donepezil/memantine (7) Lower back pain: Chronic, no acute change. Continue Tylenol/lidocaine patches while inpatient (8) Hypokalemia: . Replete additional repletion ordered 12/03 Plan CODE STATUS: DNR/DNI Total Time Total Time Spent Total Time Spent (In Minutes): it required greater than 30 minutes to prepare this patient for discharge Discharge Plan Discharge Items Patient Disposition: Home - Self-Care Reason For Visit: COVID, WEAKNESS, FALL Discharge Diagnosis: covid infection subacute lyme infection suspected Activity: Resume your previous activity Non-emergency contact: Primary Care Provider Call non-emergency contact if: your symptoms worsen Follow-up/Referrals: Cherrie Montanez MD [Primary Care Provider] - 12/12/22 10:30 am Diet: Regular Addtl Attending Provider Instructions: Please rest and recover follow up with your primary care doctor to review the results of your lyme test that was sent out for confirmation take your Doxycycline with a 8oz glass of water and do not lay down for 30 minutes after taking Pending Studies at Discharge: No Stand-Alone Forms: My [facility], Smoking Cessation Medications and DC Order Prescriptions: New doxycycline hyclate 100 mg capsule 100 mg PO BID 11 Days Qty: 22 0RF Continued oxybutynin chloride 5 mg tablet extended release 24hr 5 mg PO QAM Qty: 90 3RF escitalopram oxalate 5 mg tablet 5 mg PO DAILY Qty: 90 1RF hydrochlorothiazide 25 mg tablet 25 mg PO QAM Qty: 30 11RF losartan 50 mg tablet 50 mg PO QAM Qty: 90 3RF atorvastatin 20 mg tablet 20 mg PO QPM Qty: 90 3RF ibuprofen 200 mg tablet 200 mg PO Q6H PRN (Reason: Pain) travoprost (benzalkonium) 0.004 % drops 1 drp ophthalmic (eye) DAILY Lotemax 0.5 % drops,gel 1 drp ophthalmic (eye) QID Rx Instructions: three timmes a week latanoprost 0.005 % drops 1 drp ophthalmic (eye) QPM donepezil 10 mg tablet 10 mg PO QAM Qty: 90 3RF triamcinolone acetonide 0.1 % cream 1 applic topical BID PRN (Reason: itching) Qty: 80 5RF memantine 10 mg tablet 10 mg PO BID 90 Days Qty: 180 3RF aspirin 81 mg Tablet,Delayed Release (Dr/Ec) 81 mg PO QAM Discharge Orders: Discharge Order (Routine); Ordered 12/05/22 Ordered By: Dedrick Montoya Admission Data Admit Date/Time: 12/02/22 18:23 Attending Provider: Dedrick Montoya Admit Provider: Marcos Michaels Primary Care Provider: Cherrie Montanez Other Providers: Marcos Michaels Other Interventions: Discharge Summary Assessment (RN) Last Done: 12/05/22 11:20 Coding Level of Care Code 68446 INP/OBS DISCH >30 MIN Diagnoses COVID U07.1 Acute metabolic encephalopathy G93.41 Hyperlipidemia E78.5 Depression with anxiety F41.8 Benign hypertension I10 Memory deficit R41.3 Lower back pain M54.5 Hypokalemia E87.6
[2022-12-07 00:24] LABS: 18KDIGG Band REACTIVE; 23KDIGG Band NON-REACTIVE; 23KDIGM Band NON-REACTIVE; 28KDIGG Band REACTIVE; 30KDIGG Band NON-REACTIVE; 39KDIGG Band REACTIVE; 39KDIGM Band NON-REACTIVE; 41KDIGG Band REACTIVE; 41KDIGM Band NON-REACTIVE; 45KDIGG Band NON-REACTIVE; 58KDIGG Band REACTIVE; 66KDIGG Band NON-REACTIVE; 93KDIGG Band REACTIVE; Lyme Antibodies, WB IgG POSITIVE (NEGATIVE); Lyme Antibodies, WB IgM NEGATIVE (NEGATIVE)
== END 2022-12-05 12:30 | disposition home or self-care (01) | DRG 177 ==
LOC: ED 09:33 → EDINP 09:33 → SUATTDRO 13:05 → 2S 15:40

== ENCOUNTER 2024-03-04 11:52 | Inpatient (IN) ==
--- NOTE | 2024-03-04 13:00 | Emergency Department Note ---
Impression & Plan RLL pneumonia, Hallucinations ED Provider Note Name: ELEAZAR HOPKINS Age: 78 Sex: Female Arrives Via: Walk-In Informant: Patient (poor historian), daughter ED Provider: Sanford Escobar MD Chief Complaint: Weakness Impression: As per impressions above Medical Decision Making: Pleasant 78-year-old female with a history of Alzheimer's amongst other comorbidities arrives for evaluation of worsening weakness and confusion associated with hallucinations. Patient had been diagnosed empirically with UTI a few days earlier started on Bactrim but confusion worsened and she developed hallucinations. On arrival patient is a bit hypotensive confused but maintaining airway. She was given 1.5 L normal saline bolus with resolution of hypotension. Laboratory workup is reassuring. Chest x-ray shows a right lower lobe infiltrate. I suspect hypotension is more secondary to having not eaten or drank well rather than overt severe sepsis. Hospitalist consulted for further management. Confusion may be combination of right lower lobe infiltrate as well as possibility of reaction to Bactrim given her underlying Alzheimer's disorder. With a right lower lobe infiltrate in addition to the Rocephin she was given doxycycline as well as Flagyl for aspiration. Triage/Nursing Notes reviewed by Me External Chart Review by me: Reviewed PCP note from 02/27/2024 discussing antibiotic for possible UTI Differential:Infection, dehydration, metabolic abnormality, hypo/hyperglycemia, electrolyte disturbance, anemia, hypoxia, cardiac sources, intracerebral event, toxicologic, neurologic, as well as other pathologies. Vital Signs: reviewed and remarkable for hypertension Interventions: Normal Saline bolus 1.5 L IV, Rocephin 2 g IV, Flagyl 500 mg IV, doxycycline 100 mg IV Labs:ED labs Reviewed by me and remarkable for no significant abnormalities Imaging:X ray results are stated below per my interpretation: Chest: 1 view: Right lower lobe infiltrate EKG:Per My Interpretation: Indication weakness: SB 55 bpm, qtc 415. No Ectopy. No Ischemia. Compared to EKG 11/10/23, no significant changes. Cardiac/Tele Monitoring: Cardiac Monitoring: An Order was placed for continuous cardiac monitoring. The monitor shows a rate of 55 with a sinus clara rhythm. Consults:Discussed with Dr. Ceja of the [facility]ist service who will further evaluate and manage. Plan: Disposition:Hospitalization. Condition: Fair History of Present Illness: 78-year-old female arrives for evaluation of weakness. Patient with worsening weakness over the last several days. Associated with some increasing hallucinations and confusion. Patient with baseline dementia but is worse in the last several days as well. She has not been eating or drinking as well and usually has a pretty good appetite. No falls, trauma, injuries. No syncope. Patient is monitored 12/09. She was started on an antibiotic about a week ago for a presumed UTI though symptoms have not improved (Bactrim rx). If anything patient has been urinating more. Past Medical History:See Below Home Medications:See Below Allergies: No known drug allergies Vitals:Blood Pressure: 81/59, Pulse 72, RR 16, T 36.7C, O2 92% on RA Physical Exam: GENERAL: Patient is elderly/frail appearing and in minimal distress. RESPIRATORY: No dyspnea. Clear to auscultation and equal bilaterally. CARDIOVASCULAR: Regular rate and rhythm.No murmur appreciated. GASTROINTESTINAL: Abdomen soft, non-tender, no peritonitis. EXTREMITIES: Normal motion all extremities, no cyanosis, no edema. NEUROLOGIC: Alert though not completely oriented. No focal neurologic deficits appreciated SKIN: No rash, no jaundice, no diaphoresis. GCS: 15 ED Course: Times/Reassessments: Patient blood pressure significantly improved. Patient continues to be somewhat confused beyond her baseline and daughter is comfortable plan for hospitalization and management. Critical Care: I have personally spent 40 minutes of critical care time in the direct management of this patient. Acute hypotension requiring resuscitation. This was a life/limb threatening event. This 40 minutes is in excess of all separately billable procedures. Sanford Escobar MD Past Med/Surg History Problem List (Updated 03/04/24 @ 15:35 by Sanford Escobar MD) Hallucinations (Acute) RLL pneumonia (Acute) UTI (urinary tract infection) Aspiration pneumonia Altered mental status Encounter for examination following treatment at hospital Basal cell carcinoma of skin Lyme disease Acute metabolic encephalopathy Acute alteration in mental status (Acute) COVID-19 (Acute) Urinary tract infection (Acute) Hypokalemia Declining mobility Rash Decreased hearing of both ears Dementia Hyperlipidemia Depression with anxiety Benign hypertension (Chronic) Insomnia Balance problem Memory deficit Incontinent of urine Routine health maintenance Lower back pain Encounter for pre-operative examination History of colon polyps Medical History History of COVID-19 Orbital mass Overactive bladder History of colon polyps Surgical History History of hysterectomy History of arthroscopic knee surgery History of colonoscopy Family History Father Lung cancer Aunt Breast cancer Mother Hypertension Denies family history of Ovarian cancer Prostate cancer Diabetes Myocardial infarction Colorectal cancer Social History Smoking Status: Never smoker Second Hand Exposure: No; Do You Dip or Chew Tobacco: No; Hx Alcohol Use: No Hx Substance Use: No Preferred Language: Barbadian Communication Ability: Effective Visual Impairment: Limited Hearing Ability: Normal [employer] Advisor Required: No Beliefs That Will Affect Care: None marital status: Current Living Situation: Alone Current Living Situation Comment: 24 hour care current occupational status: retired How many Children do You have: 3 Feels Safe at Home: Yes Childhood Exposure to Second-Hand Smoke: Yes Diet: regular caffeine: Yes (coffee) during the past year weight has: remained stable Dental Care, Regularly: Yes Physical Activity Frequency: 1-2 Times per Week Seatbelt Use: always Sunscreen Use: No Assistive Devices: None Allergies Allergies Allergy/AdvReac Type Severity Reaction Status Date / Time No Known Allergies Allergy Verified 02/27/24 14:25 Home Meds Home Medications Medication Instructions Recorded Confirmed ibuprofen 200 mg tablet 200 mg PO Q6H PRN Pain 09/27/19 02/27/24 travoprost (benzalkonium) 0.004 % 1 drp ophthalmic (eye) DAILY 03/03/20 02/27/24 eye drops aspirin 81 mg tablet,delayed 81 mg PO QAM 06/16/20 02/27/24 release latanoprost 0.005 % eye drops 1 drp ophthalmic (eye) QPM 09/02/21 02/27/24 Previous Rx's Medication Instructions Recorded triamcinolone acetonide 0.1 % 1 applic topical BID PRN itching 12/06/22 topical cream #80 grams losartan 50 mg tablet 50 mg PO QAM #90 tabs 03/22/23 donepezil 10 mg tablet 10 mg PO QAM #90 tabs 04/06/23 memantine 10 mg tablet 10 mg PO BID 90 days #180 tabs 09/11/23 acetaminophen 500 mg tablet 500 mg PO Q6H PRN fever #60 tabs 11/17/23 (Tylenol Extra Strength) atorvastatin 20 mg tablet 20 mg PO QPM #90 tabs 12/04/23 oxybutynin chloride 5 mg 5 mg PO QAM #90 tabs 01/15/24 tablet,extended release 24 hr hydrochlorothiazide 12.5 mg tablet 12.5 mg PO DAILY #90 tabs 02/19/24 escitalopram oxalate 5 mg tablet 5 mg PO DAILY #90 tabs 02/26/24 sulfamethoxazole 800 1 tab PO BID #10 tabs 02/27/24 mg-trimethoprim 160 mg tablet (Bactrim DS) Results & Data (ED) Vital Signs Vital Signs - 24 hr 03/04/24 12:17 03/04/24 12:40 03/04/24 14:03 Temperature 36.7 C Temperature Source Temporal Artery Scan Pulse Rate 75 72 Pulse Rate [Right Brachial] Pulse Rhythm [Right Brachial] Pulse Strength [Right Brachial] Respiratory Rate 16 Respiratory Effort / Characteristics Non-Labored Spontaneous Respiratory Depth Normal Respiratory Pattern Regular Blood Pressure 81/59 L Blood Pressure [Right Arm] Blood Pressure Mean 66 Blood Pressure Mean [Right Arm] Blood Pressure Position [Right Arm] Pulse Oximetry 92 96 Oxygen Delivery Method Room Air Room Air Sepsis Recent Fever Within 48 Hours No Sepsis New/Unexplained Change in Mental Status Yes Sepsis Action Taken by Nursing No Action Required 03/04/24 14:03 03/04/24 14:15 03/04/24 14:30 Temperature Temperature Source Pulse Rate Pulse Rate [Right Brachial] 62 53 L 57 L Pulse Rhythm [Right Brachial] Regular Regular Regular Pulse Strength [Right Brachial] Normal Normal Normal Respiratory Rate 18 20 18 Respiratory Effort / Characteristics Non-Labored Non-Labored Non-Labored Respiratory Depth Normal Normal Normal Respiratory Pattern Regular Regular Regular Blood Pressure Blood Pressure [Right Arm] 109/64 109/64 120/78 Blood Pressure Mean Blood Pressure Mean [Right Arm] 79 79 92 Blood Pressure Position [Right Arm] Lying Lying Lying Pulse Oximetry 96 94 96 Oxygen Delivery Method Room Air Room Air Room Air Sepsis Recent Fever Within 48 Hours Sepsis New/Unexplained Change in Mental Status Sepsis Action Taken by Nursing 03/04/24 14:45 Temperature Temperature Source Pulse Rate Pulse Rate [Right Brachial] 57 L Pulse Rhythm [Right Brachial] Regular Pulse Strength [Right Brachial] Normal Respiratory Rate 18 Respiratory Effort / Characteristics Non-Labored Respiratory Depth Normal Respiratory Pattern Regular Blood Pressure Blood Pressure [Right Arm] 137/80 Blood Pressure Mean Blood Pressure Mean [Right Arm] 99 Blood Pressure Position [Right Arm] Lying Pulse Oximetry 98 Oxygen Delivery Method Room Air Sepsis Recent Fever Within 48 Hours Sepsis New/Unexplained Change in Mental Status Sepsis Action Taken by Nursing Laboratory Data 03/04/24 13:21 03/04/24 13:21 Lab Results 03/04/24 03/04/24 03/04/24 Range/Units 13:21 13:31 13:50 WBC 6.76 (4.8-10.8) K/ul RBC 4.42 (4.20-5.40) M/uL Hgb 14.4 (12.0-16.0) g/dl Hct 41.1 (37.0-47.0) % MCV 93.0 (80.0-100.0) fL MCH 32.6 (25.0-34.0) pg MCHC 35.0 (32.0-36.0) g/dL RDW Std Deviation 43.3 (36.4-46.3) fL RDW Coeff of González 12.5 (11.5-14.5) % Plt Count 250 (130-400) K/uL MPV 9.3 L (9.4-12.4) fL Immature Gran % (Auto) 0.3 % Neut % (Auto) 72.4 % Lymph % (Auto) 17.9 % [place] % (Auto) 8.4 % Eos % (Auto) 0.4 % Baso % (Auto) 0.6 % Neut # (Auto) 4.89 (1.40-6.50) K/uL Lymph # (Auto) 1.21 (1.20-3.40) K/uL [place] # (Auto) 0.57 (0.11-0.59) K/uL Eos # (Auto) 0.03 (0.00-0.50) K/uL Baso # (Auto) 0.04 (0.00-0.20) K/uL Immature Gran # (Auto) 0.02 (0.01-0.20) K/uL Sodium 137 (136-145) mmol/L Potassium 3.8 (3.5-5.1) mmol/L Chloride 100 (98-107) mmol/L Carbon Dioxide 27 (21-32) mmol/L Anion Gap 10 (3-11) BUN 10 (6-23) mg/dl Creatinine 0.86 (0.6-1.2) mg/dl Est Cr Clr Drug Dosing 46.9 ml/min eGFR 68.68 BUN/Creatinine Ratio 11.6 (10-20) Glucose 102 H (70-99(Fasting)) mg/dl Lactate 1.5 (0.4-2.0) mmol/L Calcium 9.0 (8.6-10.3) mg/dl Magnesium 2.1 (1.7-2.4) mg/dl Total Bilirubin 0.6 (0.2-1.0) mg/dl Direct Bilirubin 0.1 (0-0.2) mg/dl AST 17 (13-39) U/L ALT 13 (7-52) U/L Alkaline Phosphatase 77 (34-104) U/L Troponin I High Sens 9.7 (0-14) pg/ml Total Protein 6.9 (6.0-8.3) gm/dl Albumin 4.4 (3.4-5.0) gm/dl Procalcitonin < 0.02 (0-0.5) ng/ml Urine Color Yellow Urine Appearance Clear (Clear) Urine pH 6.5 (4.5-7.5) Ur Specific [place] 1.009 (1.000-1.030) Urine Protein Negative (Negative) Urine Glucose (UA) Negative (Negative) Urine Ketones Negative (Negative) Urine Blood Negative (Negative) Urine Nitrite Negative (Negative) Urine Bilirubin Negative (Negative) Urine Urobilinogen Negative (Negative) Ur Leukocyte Esterase Negative (Negative) SARS-CoV-2 (PCR) NEGATIVE (Negative) Influenza Type A (PCR) Negative (Neg) Influenza Type B (PCR) Negative (Neg) RSV (RT-PCR) Negative (Neg) Administered Medications Discontinued Medications Sodium Chloride (Nss) 1,000 mls @ 999 mls/hr IV .Q1H1M ARMIDA Stop: 03/04/24 13:45 Last Infusion: 03/04/24 15:00 Dose: Infused Documented By: Admin: 03/04/24 13:29 Dose: 999 mls/hr Documented By: AUREA Ceftriaxone Sodium (Rocephin) 2,000 mg in 50 mls @ 100 mls/hr IV NOW STA Stop: 03/04/24 14:38 Last Infusion: 03/04/24 15:00 Dose: Infused Documented By: Admin: 03/04/24 14:27 Dose: 100 mls/hr Documented By: KADE Imaging Data Radiologist's Impression: Chest X-Ray 03/04/24 12:44 XR chest 1V portable CLINICAL HISTORY: Sepsis COMPARISON STUDY: Chest radiograph and chest CT November 10, 2023. FINDINGS: There is no pneumothorax or pleural effusion. Cardiomegaly is unchanged. Pulmonary vascularity is normal. There is mild right lower lung opacity. Left lung is clear. Several old right rib fractures are incidentally noted. IMPRESSION: Mild right lower lung opacity suggestive of pneumonia or aspiration pneumonitis. Radiographic follow-up to ensure resolution is recommended. ACT 112: Negative or not required by law. Electronically signed by: Rupesh Huntley M.D. 03/04/2024 2:32 PM Discharge Plan Visit Data Chief Complaint: Illness Stated Complaint: HALLUCINATIONS, DIZZY, UTI/LAST WEEK ED Provider: Sanford Escobar Discharge Problem: RLL pneumonia, Hallucinations Prescriptions Prescriptions: No Action triamcinolone acetonide 0.1 % cream 1 applic topical BID PRN (Reason: itching) Qty: 80 5RF losartan 50 mg tablet 50 mg PO QAM Qty: 90 3RF memantine 10 mg tablet 10 mg PO BID 90 Days Qty: 180 3RF acetaminophen [Tylenol Extra Strength] 500 mg tablet 500 mg PO Q6H PRN (Reason: fever) Qty: 60 0RF atorvastatin 20 mg tablet 20 mg PO QPM Qty: 90 3RF oxybutynin chloride 5 mg tablet extended release 24hr 5 mg PO QAM Qty: 90 3RF hydrochlorothiazide 12.5 mg tablet 12.5 mg PO DAILY Qty: 90 0RF escitalopram oxalate 5 mg tablet 5 mg PO DAILY Qty: 90 1RF ibuprofen 200 mg tablet 200 mg PO Q6H PRN (Reason: Pain) travoprost (benzalkonium) 0.004 % drops 1 drp ophthalmic (eye) DAILY latanoprost 0.005 % drops 1 drp ophthalmic (eye) QPM donepezil 10 mg tablet 10 mg PO QAM Qty: 90 3RF sulfamethoxazole-trimethoprim [Bactrim DS] 800-160 mg tablet 1 tab PO BID Qty: 10 0RF aspirin 81 mg Tablet,Delayed Release (Dr/Ec) 81 mg PO QAM Referrals Referrals: Cherrie Montanez MD [Primary Care Provider] - Discharge Problem: RLL pneumonia Qualifiers: Pneumonia type: due to unspecified organism Qualified Code(s): J18.9 - Pneumonia, unspecified organism
[2024-03-04] MEDS: SODIUM CHLORIDE 0.9% 1,000 ML IV SCH (13:29)
[2024-03-04 13:46] LABS: Basophils # (auto) 0.04 K/uL (0.00-0.20); Basophils % (auto) 0.6 %; Eosinophils # (auto) 0.03 K/uL (0.00-0.50); Eosinophils % (auto) 0.4 %; Hematocrit (blood only) 41.1 % (37.0-47.0); Hemoglobin 14.4 g/dl (12.0-16.0); Immature Granulocytes # (auto) 0.02 K/uL (0.01-0.20); Immature Granulocytes % (auto) 0.3 %; Lymphocytes # (auto) 1.21 K/uL (1.20-3.40); Lymphocytes % (auto) 17.9 %; Mean Corpuscular Hemoglobin 32.6 pg (25.0-34.0); Mean Platelet Volume 9.3 fL (9.4-12.4); Monocytes # (auto) 0.57 K/uL (0.11-0.59); Monocytes % (auto) 8.4 %; Neutrophils # (auto) 4.89 K/uL (1.40-6.50); Neutrophils % (auto) 72.4 %; Platelet Count 250 K/uL (130-400); RDW Coefficient of Variation 12.5 % (11.5-14.5); RDW Standard Deviation 43.3 fL (36.4-46.3); Red Blood Count 4.42 M/uL (4.20-5.40); White Blood Count 6.76 K/ul (4.8-10.8)
[2024-03-04 14:21] LABS: Albumin Level 4.4 gm/dl (3.4-5.0); Bilirubin Direct 0.1 mg/dl (0-0.2); Bilirubin,Total 0.6 mg/dl (0.2-1.0); Magnesium 2.1 mg/dl (1.7-2.4); Potassium 3.8 mmol/L (3.5-5.1)
[2024-03-04 14:27] LABS: BUN Creatinine Ratio 11.6 (10-20); Creatinine Clr Calc Pharmacy 46.9 ml/min; Total Protein 6.9 gm/dl (6.0-8.3)
[2024-03-04 14:27] LABS: Appearance Urine Clear (Clear); Bilirubin Urine Negative (Negative); Blood Urine Negative (Negative); Color Urine Yellow; Glucose Urine UA Negative (Negative); Ketones Urine Negative (Negative); Leukocyte Esterase Urine Negative (Negative); Nitrite Urine Negative (Negative); Protein Urine Negative (Negative); Specific Gravity Urine 1.009 (1.000-1.030); Urobilinogen Urine Negative (Negative); pH Urine 6.5 (4.5-7.5)
[2024-03-04] MEDS: cefTRIAXone SODIUM 2,000 MG/50 ML BAG IV STA (14:27)
[2024-03-04 14:29] LABS: Troponin I High Sensitivity 9.7 pg/ml (0-14)
--- NOTE | 2024-03-04 14:34 | XRay Report ---
XR chest 1V portable CLINICAL HISTORY: Sepsis COMPARISON STUDY: Chest radiograph and chest CT November 10, 2023. FINDINGS: There is no pneumothorax or pleural effusion. Cardiomegaly is unchanged. Pulmonary vascular ity is normal. There is mild right lower lung opacity. Left lung is clear. Several old right rib frac tures are incidentally noted. IMPRESSION: Mild right lower lung opacity suggestive of pneumonia or aspiration pneumonitis. Radiogr aphic follow-up to ensure resolution is recommended. ACT 112: Negative or not required by law. Electronically signed by: Rupesh Huntley M.D. 03/04/2024 2:32 PM
[2024-03-04 15:06] LABS: Influenza A virus by PCR Negative (Neg); Influenza B virus by PCR Negative (Neg); RSV by PCR Negative (Neg); SARS CoV2 RNA(COVID-19) Ceph NEGATIVE (Negative)
--- NOTE | 2024-03-04 15:11 | History & Physical Report ---
Date of Service March 04, 2024 Assessment & Plan (1) Altered mental status: Plan: Virginia is a 78-year-old female with PMH of metabolic encephalopathy, HLD, depression, anxiety, dementia, and memory deficits. She presented on 03/04 for increased confusion, agitation, and altered mental status. H/o Alzheimer's dementia, and she is unable to provide history on arrival. Patient's daughter (Kris) at bedside provides history: visual hallucinations started the morning of 03/04; acute change in cognitive baseline. Suspect this may be secondary to (1) Bactrim Rx prescribed on 02/26 for UTI or (2) aspiration pneumonia noted on CXR CXR noted mild RLL opacity suggestive of pneumonia or aspiration pneumonitis No leukocytosis; PCT WNL; afebrile; non-hypoxic on RA Discontinue Bactrim Head CT ordered, pending (2) Aspiration pneumonia: Plan: Noted on CXR; mild Rocephin, metronidazole, doxycycline x 1 in the ED Augmentin 875 mg p.o. BID Doxycycline 100 mg p.o. BID Continuous pulse oximetry (3) Abdominal pain: Plan: Concern for abdominal tenderness on exam A/P CT ordered, pending (4) UTI (urinary tract infection): Plan: Rx bactrim on 02/27/24 UA clean on 03/04 (5) Dementia: Plan: Continue home medications Plan Disposition: Admit to [facility] telemetry DNR/DNI Regular diet (aspiration precautions) VTE PPx: Lovenox 40 mg SQ q24h History of Present Illness Chief Complaint: Illness, AMS Primary Care Provider: Cherrie Montanez MD [place] is a 78-year-old female with PMH of metabolic encephalopathy, HLD, depression, anxiety, dementia, and memory deficits. She presented on 03/04 for increased confusion, agitation, and altered mental status. Patient does have a history of Alzheimer's dementia, and is unable to provide history on arrival. Patient's daughter (Kris) is at the bedside and provides history. She reports that the patient started having visual hallucinations this morning, and complaining of "things in bed with her" as well as "things on the wall". Daughter reports this is an acute change in her cognitive baseline. Patient lives by herself, but does have private care (12/09 family and friends). No fever, chills, or night sweats reported at home. However, daughter does report decreased appetite. Patient was recently started on Bactrim on 02/26 for a UTI; prior to this, she was having symptoms of confusion, ambulatory dysfunction, and feeling unsteady on her feet. Daughter reports this is the normal presentation that she develops whenever she has a UTI. She does not ambulate with a cane or walker at baseline. Patient took her regular morning medicines today; only recent change is that she was taken off HCTZ. Additionally, patient does note mild abdominal tenderness to palpation; daughter reports no history of peptic ulcers or bowel obstructions. Patient denies smoking or tobacco use. NKDA. Patient's vitals are stable at time of admission. ED course: Doxycycline 100 mg IV Metronidazole 500 mg IV Ceftriaxone 2000 mg IV NSS 1500 mL IV Difficult to obtain ROS at this time given patient's underlying dementia/acute confusion. Allergies Allergy/AdvReac Type Severity Reaction Status Date / Time No Known Allergies Allergy Verified 02/27/24 14:25 Home Medications Medication Instructions Recorded Confirmed Type ibuprofen 200 mg tablet 200 mg PO Q6H PRN Pain 09/27/19 03/04/24 History travoprost (benzalkonium) 0.004 % 1 drp ophthalmic (eye) DAILY 03/03/20 03/04/24 History eye drops aspirin 81 mg tablet,delayed 81 mg PO QAM 06/16/20 03/04/24 History release latanoprost 0.005 % eye drops 1 drp ophthalmic (eye) QPM 09/02/21 03/04/24 History triamcinolone acetonide 0.1 % 1 applic topical BID PRN itching 12/06/22 03/04/24 Rx topical cream #80 grams losartan 50 mg tablet 50 mg PO QAM #90 tabs 03/22/23 03/04/24 Rx donepezil 10 mg tablet 10 mg PO QAM #90 tabs 04/06/23 03/04/24 Rx memantine 10 mg tablet 10 mg PO BID 90 days #180 tabs 09/11/23 03/04/24 Rx acetaminophen 500 mg tablet 500 mg PO Q6H PRN fever #60 tabs 11/17/23 03/04/24 Rx (Tylenol Extra Strength) atorvastatin 20 mg tablet 20 mg PO QPM #90 tabs 12/04/23 03/04/24 Rx oxybutynin chloride 5 mg 5 mg PO QAM #90 tabs 01/15/24 03/04/24 Rx tablet,extended release 24 hr escitalopram oxalate 5 mg tablet 5 mg PO DAILY #90 tabs 02/26/24 03/04/24 Rx Past Med/Surg History Problem List (Updated 03/04/24 @ 16:27 by Gerardo Scott PA-C) Abdominal pain Hallucinations (Acute) RLL pneumonia (Acute) UTI (urinary tract infection) Aspiration pneumonia Altered mental status Encounter for examination following treatment at hospital Basal cell carcinoma of skin Lyme disease Acute metabolic encephalopathy Acute alteration in mental status (Acute) COVID-19 (Acute) Urinary tract infection (Acute) Hypokalemia Declining mobility Rash Decreased hearing of both ears Dementia Hyperlipidemia Depression with anxiety Benign hypertension (Chronic) Insomnia Balance problem Memory deficit Incontinent of urine Routine health maintenance Lower back pain Encounter for pre-operative examination History of colon polyps Medical History History of COVID-19 Orbital mass Overactive bladder History of colon polyps Surgical History History of hysterectomy History of arthroscopic knee surgery History of colonoscopy Family History Father Lung cancer Aunt Breast cancer Mother Hypertension Denies family history of Ovarian cancer Prostate cancer Diabetes Myocardial infarction Colorectal cancer Social History Smoking Status: Never smoker Second Hand Exposure: No; Do You Dip or Chew Tobacco: No; Hx Alcohol Use: No Hx Substance Use: No Preferred Language: Urdu Communication Ability: Effective Visual Impairment: Limited Hearing Ability: Normal Animal Attendant Required: No Beliefs That Will Affect Care: None marital status: Current Living Situation: Family Current Living Situation Comment: 24 hour care current occupational status: retired How many Children do You have: 3 Feels Safe at Home: Yes Childhood Exposure to Second-Hand Smoke: Yes Diet: regular caffeine: Yes (coffee) during the past year weight has: remained stable Dental Care, Regularly: Yes Physical Activity Frequency: 1-2 Times per Week Seatbelt Use: always Sunscreen Use: No Assistive Devices: None Review of Systems Review of Systems: See HPI above Physical Exam Physical Exam: General: no acute distress; non-toxic appearing; well-nourished; cooperative HEENT: normocephalic, atraumatic; no scleral icterus; PERRLA; vision and hearing intact Neck: supple; no lymphadenopathy; trachea midline Skin: warm, dry without signs of tenting; no cyanosis; no rashes, bruising, les ions, or erythema noted CV: chest wall NTP; RRR; S1/S2 normal; no murmurs/rubs/gallops; pulses intact and symmetric at radial, DP, and PT Lungs: no acute respiratory distress; symmetrical chest wall expansion; clear breath sounds across all lung lowry w/o adventitious sounds; no wheezing ABD: Soft; RUQ and LUQ are mildly TTP; positive suprapubic tenderness; BS present; no rebound/guarding; no distention MSK: no tics or fasciculations; no edema noted in the LEs b/l, nonerythematous Neuro: Patient is A&O to name//location, but has difficulty with the month; she does exhibit some incoherent thought processes; fluent speech; no facial droop; patient reports that sensation is intact and symmetric in the lower extremities bilaterally Results & Data Results & Data Vital Signs (Past 12 Hours) Vital Signs Temp Pulse Pulse Resp BP BP Pulse Ox 03/04/24 14:45 57 L 18 137/80 98 03/04/24 14:30 57 L 18 120/78 96 03/04/24 14:15 53 L 20 109/64 94 03/04/24 14:03 62 18 109/64 96 03/04/24 14:03 96 03/04/24 12:40 72 03/04/24 12:17 36.7 C 75 16 81/59 L 92 O2 Del Method 03/04/24 14:45 Room Air 03/04/24 14:30 Room Air 03/04/24 14:15 Room Air 03/04/24 14:03 Room Air 03/04/24 14:03 Room Air 03/04/24 12:40 03/04/24 12:17 Room Air Laboratory Results Abnormal lab results 03/04/24 Range/Units 13:21 MPV 9.3 L (9.4-12.4) fL Glucose 102 H (70-99(Fasting)) mg/dl Diagnostic Findings Chest X-Ray 03/04/24 12:44 XR chest 1V portable CLINICAL HISTORY: Sepsis COMPARISON STUDY: Chest radiograph and chest CT November 10, 2023. FINDINGS: There is no pneumothorax or pleural effusion. Cardiomegaly is unchanged. Pulmonary vascularity is normal. There is mild right lower lung opacity. Left lung is clear. Several old right rib fractures are incidentally noted. IMPRESSION: Mild right lower lung opacity suggestive of pneumonia or aspiration pneumonitis. Radiographic follow-up to ensure resolution is recommended. ACT 112: Negative or not required by law. Electronically signed by: Rupesh Huntley M.D. 03/04/2024 2:32 PM ECG Additional Comments: ECG ordered, pending Code Status & VTE Plan Code Status DNR/DNI VTE Prophylaxis Plan VTE Prophylaxis will be ordered: Yes Supervising Physician Co-Signing Physician Notes I personally saw and examined the patient. I independently reviewed the labs, EKG, imaging, problem list, medication list, past medical history and family history. I verified all williamson points and agree with Gerardo Scott PA-C with the following exceptions and/or additions: 78 year old female presents to the ER with her family due to hallucinations. Recent started on Bactrim for UTI although this diagnosis was based on urinary frequency and increased confusion however hallucinations are new since then. O/E Alert but not orientated x3, HS RRR, no murmurs, Chest CTAB, Abdo SNT, no overt hallucinations at bedside A/P Hallucinations - insetting of dementia however this is a significant change in her mental status, currently at risk to herself pulling at her IVs and trying to get out of bed, will give Zyprexa 2.5mg PO now. ?secondary to Bactrim although when I went back to see the patient after initial evaluation there was some confusion whether she actually has had this in the last couple of days ?lack of sleep (although this notably has not changed) ?secondary to PNA (CXR not overly impressive) Pneumonia - mild changes on CXR, since this is the only easily reversible cause found for hallucinations will treat with Unasyn + doxycycline and have speech evaluate her for aspirating. Cepheid negative. Rectal thickening on CT - unlikely cause of her hallucinations, discussed with family and workup deferred for now but could be considered at a later date PG Care Time/CCT Total # of Minutes Spent Total Time Spent with Patient: Total time spent is greater than 50% in coordination of care (as documented) at patient's floor/unit and/or counseling patient: Coding [place] [address] INT INP/OBS CARE 3/75MIN Patient Type Established Medical Decision Making High Complexity Diagnoses Altered mental status R41.82 Aspiration pneumonia J69.0 Abdominal pain R10.9 UTI (urinary tract infection) N39.0 Dementia F03.90
[2024-03-04] MEDS: DOXYCYCLINE HYCLATE 100 MG in DEXTROSE 5% MINI-B 100 ML IV STA (15:37)
[2024-03-04] MEDS: metroNIDAZOLE 500 MG/100 ML BAG IV STA (15:37)
[2024-03-04] MEDS: SODIUM CHLORIDE 0.9% 500 ML IV ONE (15:37)
[2024-03-04] MEDS: OPTIRAY 320 100ml IV ONE (17:22)
--- NOTE | 2024-03-04 17:49 | CT Scan Report ---
EXAM: CT Head Without Intravenous Contrast INDICATION: Visual hallucinations. TECHNIQUE: Axial computed tomography images of the head/brain without intravenous contrast. Sagittal and/or coronal reformats are provided. Sagittal and coronal reformatted images were created and reviewed. This CT exam was performed using one or more of the following dose reduction techniques: automated exposure control, adjustment of the mA and/or kV according to patient size, and/or use of iterative reconstruction technique. COMPARISON: 11/10/2023 FINDINGS: Limitations: None. Brain and extra-axial spaces: There is age appropriate cortical atrophy and chronic ischemic periventricular white matter hypodensity. No acute infarct, hemorrhage or mass noted. Bones/joints: No acute changes. Soft tissues: No significant abnormality noted. Vasculature: No acute abnormality noted. Sinuses: No layering fluid in the visualized portions of the paranasal sinuses. Mastoid air cells: No mastoid effusion. Orbits: No significant abnormality noted. IMPRESSION: Cerebral atrophy. No acute changes. ACT 112: Negative or not required by law. Electronically signed by Ana Thao 03-04-2024 5:48 PM
--- NOTE | 2024-03-04 17:49 | CT Scan Report ---
EXAM: CT Abdomen and Pelvis With Intravenous Contrast INDICATION: Visual hallucinations. TECHNIQUE: Axial computed tomography images of the abdomen and pelvis with intravenous contrast. Sagittal and coronal reformatted images were created and reviewed. This CT exam was performed using one or more of the following dose reduction techniques: automated exposure control, adjustment of the mA and/or kV according to patient size, and/or use of iterative reconstruction technique. CONTRAST: 93ml of Optiray 320 was administered intravenously. COMPARISON: No relevant prior studies available. FINDINGS: Limitations: None. Lung bases: Atelectasis and probable airway thickening in the lower lobes. Pleural space: No visualized pleural effusion or pneumothorax. Heart: Mild cardiomegaly. Trace pericardial effusion. Mediastinum: No abnormality noted. ABDOMEN: Liver: No abnormality noted. Gallbladder and bile ducts: No calcified stones or surrounding fluid. Pancreas: Homogeneous enhancement. No mass, inflammation or ductal dilation. Spleen: No significant abnormality noted. Adrenals: No significant abnormality noted. Kidneys and ureters: Normal enhancement. No mass, hydronephrosis or visualized stone. Stomach and bowel: There is asymmetric masslike thickening of the right side of the rectum measuring 3.5 x 2.0 cm. Moderate to large amounts of stool scattered throughout the colon with diverticulosis. No diverticulitis or obstruction. PELVIS: Appendix: No findings to suggest acute appendicitis. Bladder: No filling defects to suggest mass or large stone. No inflammation. Reproductive: Very small calcified uterine fibroids noted. There is a 3.0 x 1.8 x 2.1 cm partially exophytic right fundal fibroid. Right adnexal calcifications may be vascular and/or ovarian. Appearance benign. ABDOMEN and PELVIS: Intraperitoneal space: No free air. No significant fluid collection. Bones/joints: Chronic L5 spondylolysis with grade 1-2 anterolisthesis of L5 and S1. Moderate facet arthrosis and accentuated lumbar lordosis noted. No acute osseous abnormality. Soft tissues: No significant abnormality noted. Vasculature: Atherosclerotic calcification of the aorta and branches. No aneurysm. Lymph nodes: No pathologically enlarged lymph nodes. IMPRESSION: 1. There is asymmetric masslike right distal rectal thickening. Neoplasm should be excluded. 2. Suspect acute and/or chronic bronchitis and mild pneumonitis in the right lower lobe. ACT 112: Negative or not required by law. Electronically signed by Ana Thao 03-04-2024 5:48 PM
[2024-03-04] MEDS: ACETAMINOPHEN 325 MG TAB PO STA (19:17)
[2024-03-04] MEDS: MELATONIN 3 MG TAB PO STA (19:53)
[2024-03-04] MEDS: OLANZapine ZYDIS 5 MG ORALLY DIS. TAB PO STA ×2 (20:28→22:01)
[2024-03-04] MEDS: MEMANTINE HCL 10 MG TAB PO SCH (22:00)
[2024-03-04] MEDS: ATORVASTATIN 20 MG TAB PO SCH (22:00)
[2024-03-04] MEDS: AMPICILLIN/SULBACTAM SOD 3,000 MG/100 ML BAG IV SCH (22:00)
[2024-03-04] MEDS: DOXYCYCLINE HYCLATE 100 MG CAP PO SCH (22:00)
[2024-03-04] MEDS: ENOXAPARIN INJ 40 MG/0.4 ML SYR SQ SCH (22:01)
[2024-03-04] MEDS: LATANOPROST 0.005% OP SOLN 2.5 ML BTL OP SCH (22:01)
[2024-03-05 06:29] LABS: Basophils # (auto) 0.04 K/uL (0.00-0.20); Basophils % (auto) 0.6 %; Eosinophils # (auto) 0.04 K/uL (0.00-0.50); Eosinophils % (auto) 0.6 %; Hematocrit (blood only) 39.6 % (37.0-47.0); Hemoglobin 13.6 g/dl (12.0-16.0); Immature Granulocytes # (auto) 0.02 K/uL (0.01-0.20); Immature Granulocytes % (auto) 0.3 %; Lymphocytes % (auto) 15.5 %; Mean Corpuscular Hemoglobin 32.2 pg (25.0-34.0); Mean Corpuscular Hgb Conc 34.3 g/dL (32.0-36.0); Mean Corpuscular Volume 93.6 fL (80.0-100.0); Mean Platelet Volume 9.3 fL (9.4-12.4); Monocytes % (auto) 10.8 %; Neutrophils # (auto) 4.66 K/uL (1.40-6.50); Neutrophils % (auto) 72.2 %; Platelet Count 223 K/uL (130-400); RDW Standard Deviation 44.2 fL (36.4-46.3); Red Blood Count 4.23 M/uL (4.20-5.40); White Blood Count 6.46 K/ul (4.8-10.8)
[2024-03-05 06:50] LABS: BUN Creatinine Ratio 8.2 (10-20); Calcium 8.9 mg/dl (8.6-10.3); Creatinine Clr Calc Pharmacy 53.9 ml/min; Potassium 3.3 mmol/L (3.5-5.1)
[2024-03-05] MEDS: OLANZapine ZYDIS 5 MG ORALLY DIS. TAB PO STA (07:35)
[2024-03-05] MEDS: ASPIRIN 81 MG ECTAB PO SCH (09:50)
[2024-03-05] MEDS: DONEPEZIL HCL 10 MG TAB PO SCH (09:50)
[2024-03-05] MEDS: OXYBUTYNIN CHLORIDE XL 5 MG TABCR PO SCH (09:50)
[2024-03-05] MEDS: LOSARTAN POTASSIUM 50 MG TAB PO SCH (09:50)
[2024-03-05] MEDS: ESCITALOPRAM OXALATE 10 MG TAB PO SCH (09:50)
[2024-03-05] MEDS: TRAVOPROST Z 0.004% OPH SOLN 2.5 ML BTL OP SCH (09:51)
[2024-03-05] MEDS: ACETAMINOPHEN 325 MG TAB PO PRN (12:53)
[2024-03-05] MEDS: SODIUM CHLORIDE 0.9% 1,000 ML IV SCH (12:53)
[2024-03-05] MEDS: SODIUM CHLORIDE 0.9% 500 ML IV ONE ×2 (15:49→16:44)
--- NOTE | 2024-03-05 17:27 | Hospitalist Progress Note ---
Date of Service March 05, 2024 Assessment & Plan (1) Altered mental status: Plan: [place] is a 78-year-old female with PMH of metabolic encephalopathy, HLD, depression, anxiety, dementia, and memory deficits. She presented on 03/04 for increased confusion, agitation, and altered mental status. H/o Alzheimer's dementia, and she is unable to provide history on arrival. Patient's daughter (Kris) at bedside provides history: visual hallucinations started the morning of 03/04; acute change in cognitive baseline. Suspected Toxic vs. Metabolic encephalopathy Suspect this may be secondary to Bactrim Rx prescribed on 02/26 for UTI, aspirati on pneumonia noted on CXR, and/or lack of sleep recently CXR noted mild RLL opacity suggestive of pneumonia or aspiration pneumonitis No leukocytosis; PCT WNL; non-hypoxic on RA. Low-grade fever of 100.0 F on 03/[address] showed cerebral atrophy but no acute changes Alzheimer's dementia at baseline, at increased risk for hospital associated delirium. Maintain delirium precautions (2) Aspiration pneumonia: Plan: Noted on CXR; mild Remains stable on room air Continue Unasyn 3 g Q6H Continue doxycycline 100 mg BID Speech therapy consulted recommend diet as tolerated, general aspiration precautions, assist patient with mouth care twice daily. Reported that daughter is not interested in VFSS/having swallowing addressed at this time (3) Abdominal pain: Plan: Concern for abdominal tenderness on exam CT A/P noted asymmetric masslike right distal rectal thickening. Discussed with family and admission workup deferred for now. Could be considered in outpatient setting to rule out neoplasm Urine culture pending (4) UTI (urinary tract infection): Plan: Rx bactrim on 02/27/24 UA clean on 03/04 Urine culture pending (5) Dementia: Plan: Continue home medications Plan Updated daughters at bedside Ordered IV fluid bolus/maintenance Ordered Zyprexa Reviewed speech therapy's recommendations VTE PPx: Lovenox 40 mg SQ q24h CODE STATUS: DNR/DNI Admission and Anticipated Discharge Date Admission Date: March 04, 2024 Supervising Physician Co-Signing Physician Notes Attending Attestation - Chart reviewed, care plan d/w MANSI Vicente. I agree w/ the williamson components of her documentation. Casey Davis MD Subjective Patient seen and evaluated at bedside with her 2 daughters present. She is very lethargic today, history mostly obtained from her daughters. They report that she has dementia at baseline but this is definitely worse than her normal. She is not speaking in full sentences, more so mumbling intermittently; daughters report she does converse normally at baseline. RN reports patient was able to take her morning pills with water and has been able to stand and pivot to the bedside commode with 2 assist. Discussed signs/symptoms and duration of delirium with patient's daughters. Daughters asked for "same medicine for sleep as last night" as a state patient has not had good sleep in days, but was able to sleep well last night. Will trial Zyprexa again tonight. No additional complaints or concerns at this time. Physical Exam Physical Exam: General: Lethargic, mumbles intermittently, able to follow some commands, slept most of the day. Cardiac: Regular rate and rhythm without murmurs gallops or rubs. Pulm: Poor respiratory effort but clear to auscultation bilaterally without wheezes, rales or rhonchi. No respiratory distress. 94% on room air. Abdominal: Soft, nondistended. Some facial grimacing with palpation. Bowel sounds present. Neuro: A&O x1 (self). No focal neurological deficits. Results & Data Results & Data Vital Signs (Past 12 Hours) Vital Signs Temp Pulse Pulse Resp BP BP Pulse Ox 03/05/24 17:19 100/65 03/05/24 16:36 92/64 L 03/05/24 15:17 67 79/54 L 03/05/24 15:15 99.5 F 63 16 81/54 L 94 03/05/24 14:25 65 03/05/24 13:09 94 03/05/24 13:05 97.5 F L 68 16 92/59 L 93 03/05/24 09:50 03/05/24 09:42 97.9 F 03/05/24 09:35 100.0 F H 03/05/24 09:17 98.1 F 79 16 123/88 92 03/05/24 07:20 72 O2 Del Method 03/05/24 17:19 03/05/24 16:36 03/05/24 15:17 03/05/24 15:15 Room Air 03/05/24 14:25 03/05/24 13:09 Room Air 03/05/24 13:05 Room Air 03/05/24 09:50 Room Air 03/05/24 09:42 03/05/24 09:35 03/05/24 09:17 Room Air 03/05/24 07:20 Laboratory Results Reviewed CBC Reviewed BMP Reviewed blood cultures Diagnostic Findings Reviewed CXR Reviewed head CT Reviewed CT A/P PG Care Time/CCT Total # of Minutes Spent Total Time Spent with Patient: Total time spent is greater than 50% in coordination of care (as documented) at patient's floor/unit and/or counseling patient: Coding Level of Care Code 40715 SUB INP/OBS CARE 3/50MIN Diagnoses Altered mental status R41.82 Aspiration pneumonia J69.0 Abdominal pain R10.9 UTI (urinary tract infection) N39.0 Dementia F03.90
[2024-03-05] MEDS: OLANZAPINE 2.5 MG TAB PO SCH (21:21)
[2024-03-06 06:40] LABS: Basophils # (auto) 0.04 K/uL (0.00-0.20); Basophils % (auto) 0.5 %; Eosinophils # (auto) 0.07 K/uL (0.00-0.50); Eosinophils % (auto) 0.9 %; Hematocrit (blood only) 35.8 % (37.0-47.0); Hemoglobin 12.5 g/dl (12.0-16.0); Immature Granulocytes # (auto) 0.03 K/uL (0.01-0.20); Immature Granulocytes % (auto) 0.4 %; Lymphocytes # (auto) 1.64 K/uL (1.20-3.40); Lymphocytes % (auto) 20.4 %; Mean Corpuscular Hemoglobin 32.6 pg (25.0-34.0); Mean Corpuscular Hgb Conc 34.9 g/dL (32.0-36.0); Mean Corpuscular Volume 93.5 fL (80.0-100.0); Mean Platelet Volume 9.3 fL (9.4-12.4); Monocytes # (auto) 0.63 K/uL (0.11-0.59); Monocytes % (auto) 7.9 %; Neutrophils # (auto) 5.61 K/uL (1.40-6.50); Neutrophils % (auto) 69.9 %; Platelet Count 198 K/uL (130-400); RDW Coefficient of Variation 13.2 % (11.5-14.5); RDW Standard Deviation 45.2 fL (36.4-46.3); Red Blood Count 3.83 M/uL (4.20-5.40); White Blood Count 8.02 K/ul (4.8-10.8)
[2024-03-06 07:00] LABS: BUN Creatinine Ratio 15.4 (10-20); Calcium 8.4 mg/dl (8.6-10.3); Creatinine Clr Calc Pharmacy 76.1 ml/min; Potassium 3.2 mmol/L (3.5-5.1)
[2024-03-06] MEDS: POTASSIUM CHLORIDE CRTAB 20 MEQ TABCR PO STA ×2 (08:47→09:22)
[2024-03-06] MEDS ORDERED: POTASSIUM CHLORIDE CRTAB 20 MEQ TABCR PO SCH (09:00)
[2024-03-06] MEDS: POTASSIUM CHLORIDE / WTR 10 MEQ/100 ML PLCT IV SCH (09:12)
--- NOTE | 2024-03-06 11:28 | Palliative Care Consultation ---
Date of Consultation March 06, 2024 Assessment & Plan (1) Palliative care by specialist: (2) Counseling regarding advanced directives and goals of care: (3) Encounter for end of life education, guidance and counseling: (4) Delirium: Plan [facility] conversation held at bedside with pt's daughter Kris. In summary: Continue with current level of care, family would benefit from referral to hospice in the [facility] for future care planning. Patient has exhibited current lack of decisional capacity and does require a proxy for medical decisions. Plan discussed with the BSRN, IVORY and attending team. Details of conversation: Patient has exhibited current lack of decisional capacity based on the inability to convey understanding of personal PMHx, current medical condition, treatment options nor the risks / benefits of those options, and lack of ability to make decisions based on such knowledge. Hospital does not have written documentation of patient wishes concerning her chosen proxy for medical decisions. Per PA [id number], in absence of written documentation of patient wishes, pt's proxy for medical decisions would be her three adult daughters with equal authority. Pt does require a proxy for medical decisions. Kris reports that the pt does have a living will and agrees to bring a copy to hospital. 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 She has three adult daughters, four grandchildren and 12 great grandchildren. 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 Kris questioned if pt might return to home and her prior level of independence. Spent a substantial amount of time discussing the progressively debilitating nature of dementia. Explained that dementia is incurable and irreversible, and can include progressive/worsening memory loss, confusion, language difficulties/lack of comprehension skills/loss of verbal skills eventually, mood changes, impaired judgment, trouble with motor skills/coordination/balance issues, visual and spatial problems, hallucinations, and personality changes. The rate of progression in mixed dementia can vary widely from person to person. Factors such as the types of dementia involved, overall health, and genetics can influence the speed of progression. Some individuals experience a more gradual decline, while others may progress more rapidly through the stages. We discussed and differentiated dementia from delirium and helped family understand that they can co-exist. I reviewed Dementia is a terminal illness. Aggressive medical treatment for patients with advanced dementia is often inappropriate for medical reasons, has a low rate of success, and can have negative outcomes that hasten functional decline and . ([place] [employer] Ethics Committee and Clinical Practice and Models of Care Committee. J Am Geriatr Soc. 2014 Sep;62(8):1590-3 and Inderjit SL, Viktoria JM, Rodrigez SC, Enmanuel V. A national study of the location of for older persons with dementia. J Am Geriatr Soc 2005; 53(2):299-305.). Helped them understand differences between dementia and delirium. Discussed typical progression of dementia and how it may be staged. Stage 1: Normal Functioning: In the early stage, individuals show no signs of dementia, and their cognitive function is normal Stage 2: Very Mild Cognitive Decline: Minor memory lapses and forgetfulness may occur but are often attributed to normal aging Stage 3: Mild Cognitive Decline: Early signs of dementia become more noticeable, such as memory problems and difficulty finding words Stage 4: Moderate Cognitive Decline: Memory loss becomes more pronounced, and individuals may struggle with tasks like managing finances and planning Stage 5: Moderately Severe Cognitive Decline: Daily functioning becomes challenging, and individuals may require assistance with tasks like dressing and bathing Stage 6: Severe Cognitive Decline: In this stage, individuals need substantial help with daily activities, and communication becomes increasingly difficult Stage 7: Very Severe Cognitive Decline: In the final stage, individuals may lose the ability to communicate, walk, and perform basic tasks. They require [id number] care. Older adults with dementia frequently receive acute care in their last year of life although Hospice care was more common for home/LONG TERM residents. Overall time in hospice remains short due to the underutilization of the hospice benefit for terminal dementia (Vanessa MM, Vanessa JM, Santiago KM, Sergio DE, Hitesh PY. Dementia Care in the Last Year of Life: Experiences in a Community Practice and in [facility] Facilities. J Palliat Care. 2022;38(2):135-142. doi:10.1177/[id number]) Home Hospice is a valuable option for terminal dementia who desire to have peaceful EOL at home. Home hospice care for advanced dementia can improve symptom management and caregiver satisfaction, while decreasing caregiver burden, preventing hospitalizations and discontinuing unnecessary medication (Masood AGUAYO, Sherif R, Nai G, et al. Home hospice for older people with advanced dementia: a commercial drone pilot project [published correction appears in Isr J Health Policy Res. 2019 Aug 20;8(1):56]. Isr J Health Policy Res. 2019;8(1):42. Published 2018June 25. doi:10.1186/h82928-010-3547-r). Discussed hospice benefit: an interdisciplinary program offered by nurses, nurses aides, social workers, chaplains and a medical research associate for patients with a terminal condition and a life expectancy of less than 6 months. This is covered by Medicare at 100%/no out of pocket expense to patient and all m eds/supplies needed by patient for the reason they are on hospice are paid for/covered by hospice. The goal is assure quality of life of the patient in their home setting (home, mcc, inpatient hospice setting) by providing symptoms management, psychosocial and spiritual support. However, they cannot offer 24 hours care and if the family is unable to provide that care, they will have to consider personal care with out of pocket cost vs. mcc placement. We discussed the goals of hospice as a patient service and the goals of care; we discussed EOL trajectories and transitions herb the emotional impact of realizing mortality as a concrete reality from prior abstract considerations. Pt was reassured that no matter where they are along this trajectory, they are not alone - their medical team will remain by their side through their journey. Discussed the pros/cons of accepting help when especially weakened and distressed by pain-which would also help provide relief/decrease caregiver burden/strain. Kris was grateful for the information and shared that she plan to transition to hospice care in the future and request information about Hospice agencies in [facility]. She shared desire to keep pt at home and hopes that "when the time comes" pt can transition to hospice at home. History of Present Illness Reason for Consultation: goals of care Requesting Physician: Casey Davis MD Attending Physician: Casey Davis MD History of Present Illness [place] is a 78-year-old female with PMH of metabolic encephalopathy, HLD, depression, anxiety, Alzheimer's dementia, and memory deficits. She presented on 03/04 for acute increased confusion, visual hallucinations, agitation, and altered mental status. She was being treated for UTI since 02/26 and has historically developed delirium with UTIs. Allergies Allergy/AdvReac Type Severity Reaction Status Date / Time No Known Allergies Allergy Verified 02/27/24 14:25 Home Medications Medication Instructions Recorded Confirmed Type ibuprofen 200 mg tablet 200 mg PO Q6H PRN Pain 09/27/19 03/04/24 History travoprost (benzalkonium) 0.004 % 1 drp ophthalmic (eye) DAILY 03/03/20 03/04/24 History eye drops aspirin 81 mg tablet,delayed 81 mg PO QAM 06/16/20 03/04/24 History release latanoprost 0.005 % eye drops 1 drp ophthalmic (eye) QPM 09/02/21 03/04/24 History triamcinolone acetonide 0.1 % 1 applic topical BID PRN itching 12/06/22 03/04/24 Rx topical cream #80 grams losartan 50 mg tablet 50 mg PO QAM #90 tabs 03/22/23 03/04/24 Rx donepezil 10 mg tablet 10 mg PO QAM #90 tabs 04/06/23 03/04/24 Rx memantine 10 mg tablet 10 mg PO BID 90 days #180 tabs 09/11/23 03/04/24 Rx acetaminophen 500 mg tablet 500 mg PO Q6H PRN fever #60 tabs 11/17/23 03/04/24 Rx (Tylenol Extra Strength) atorvastatin 20 mg tablet 20 mg PO QPM #90 tabs 12/04/23 03/04/24 Rx oxybutynin chloride 5 mg 5 mg PO QAM #90 tabs 01/15/24 03/04/24 Rx tablet,extended release 24 hr escitalopram oxalate 5 mg tablet 5 mg PO DAILY #90 tabs 02/26/24 03/04/24 Rx Patient History Medical History History of COVID-19 Orbital mass Overactive bladder History of colon polyps Surgical History History of hysterectomy History of arthroscopic knee surgery History of colonoscopy Family History Father Lung cancer Aunt Breast cancer Mother Hypertension Denies family history of Ovarian cancer Prostate cancer Diabetes Myocardial infarction Colorectal cancer Social History Smoking Status: Never smoker Second Hand Exposure: No; Do You Dip or Chew Tobacco: No; Hx Alcohol Use: No Hx Substance Use: No Preferred Language: Micronesian Communication Ability: Effective Visual Impairment: Limited Hearing Ability: Normal Rn Circulating Required: No Beliefs That Will Affect Care: None marital status: Current Living Situation: Family Current Living Situation Comment: 24 hour care current occupational status: retired How many Children do You have: 3 Feels Safe at Home: Yes Childhood Exposure to Second-Hand Smoke: Yes Diet: regular caffeine: Yes (coffee) during the past year weight has: remained stable Dental Care, Regularly: Yes Physical Activity Frequency: 1-2 Times per Week Seatbelt Use: always Sunscreen Use: No Assistive Devices: Raised Toilet Seat, Walker and Wheelchair Review of Systems Review of Systems: Unobtainable due to cognitive status Physical Exam Physical Exam: General- pleasantly confused, not in distress, on 4L NC O2 Head- atraumatic/normocephalic Eyes- PERRL, EOMI, anicteric ENT- oropharynx clear, MMM Neck- supple, no JVD, no adenopathy, no thyromegaly; carotids +2/2, no bruits appreciated Lungs- b/l rales and rhonchi, good air entry BL Heart- normal rate, regular rhythm; no murmur, no gallop, no rub appreciated Abdomen- normal bowel sounds, nondistended, soft, nontender, no masses or hepatosplenomegaly Extremities- no pretibial edema, no calf tenderness; peripheral pulses intact Neuro- decreased hearing otherwise CN 2-12 grossly intact; motor 5/5 bilaterally;sensation 100% on all extremities; no other gross focal neurologic deficits Skin- warm & dry Neuro: Patient is lethargic, mostly sleeping but does arouse to verbal stimuli, pleasantly confused with incoherent thought processes; fluent speech; no facial droop; Results & Data Vital Signs (Past 12 Hours) Vital Signs Temp Pulse Pulse Pulse Resp BP Pulse Ox 03/06/24 09:25 03/06/24 07:31 36.6 C 60 18 129/77 94 03/06/24 05:45 75 03/06/24 02:45 37.3 C 90 18 159/90 H 91 03/06/24 02:10 37.7 C H 03/05/24 23:29 74 O2 Del Method 03/06/24 09:25 Room Air 03/06/24 07:31 Room Air 03/06/24 05:45 03/06/24 02:45 Room Air 03/06/24 02:10 03/05/24 23:29 Laboratory Results Abnormal lab results 03/06/24 Range/Units 06:17 RBC 3.83 L (4.20-5.40) M/uL Hct 35.8 L (37.0-47.0) % MPV 9.3 L (9.4-12.4) fL [place] # (Auto) 0.63 H (0.11-0.59) K/uL Potassium 3.2 L (3.5-5.1) mmol/L Chloride 109 H (98-107) mmol/L Creatinine 0.52 L (0.6-1.2) mg/dl Glucose 105 H (70-99(Fasting)) mg/dl Calcium 8.4 L (8.6-10.3) mg/dl Diagnostic Findings Chest X-Ray 03/04/24 12:44 XR chest 1V portable CLINICAL HISTORY: Sepsis COMPARISON STUDY: Chest radiograph and chest CT November 10, 2023. FINDINGS: There is no pneumothorax or pleural effusion. Cardiomegaly is unchanged. Pulmonary vascularity is normal. There is mild right lower lung opacity. Left lung is clear. Several old right rib fractures are incidentally noted. IMPRESSION: Mild right lower lung opacity suggestive of pneumonia or aspiration pneumonitis. Radiographic follow-up to ensure resolution is recommended. ACT 112: Negative or not required by law. Electronically signed by: Rupesh Huntley M.D. 03/04/2024 2:[address] 03/04/24 16:24 EXAM: CT Head Without Intravenous Contrast INDICATION: Visual hallucinations. TECHNIQUE: Axial computed tomography images of the head/brain without intravenous contrast. Sagittal and/or coronal reformats are provided. Sagittal and coronal reformatted images were created and reviewed. This CT exam was performed using one or more of the following dose reduction techniques: automated exposure control, adjustment of the mA and/or kV according to patient size, and/or use of iterative reconstruction technique. COMPARISON: 11/10/2023 FINDINGS: Limitations: None. Brain and extra-axial spaces: There is age appropriate cortical atrophy and chronic ischemic periventricular white matter hypodensity. No acute infarct, hemorrhage or mass noted. Bones/joints: No acute changes. Soft tissues: No significant abnormality noted. Vasculature: No acute abnormality noted. Sinuses: No layering fluid in the visualized portions of the paranasal sinuses. Mastoid air cells: No mastoid effusion. Orbits: No significant abnormality noted. IMPRESSION: Cerebral atrophy. No acute changes. ACT 112: Negative or not required by law. Electronically signed by Ana Thao 03-04-2024 5:48 PM Abdomen/Pelvis CT 03/04/24 16:25 EXAM: CT Abdomen and Pelvis With Intravenous Contrast INDICATION: Visual hallucinations. TECHNIQUE: Axial computed tomography images of the abdomen and pelvis with intravenous contrast. Sagittal and coronal reformatted images were created and reviewed. This CT exam was performed using one or more of the following dose reduction techniques: automated exposure control, adjustment of the mA and/or kV according to patient size, and/or use of iterative reconstruction technique. CONTRAST: 93ml of Optiray 320 was administered intravenously. COMPARISON: No relevant prior studies available. FINDINGS: Limitations: None. Lung bases: Atelectasis and probable airway thickening in the lower lobes. Pleural space: No visualized pleural effusion or pneumothorax. Heart: Mild cardiomegaly. Trace pericardial effusion. Mediastinum: No abnormality noted. ABDOMEN: Liver: No abnormality noted. Gallbladder and bile ducts: No calcified stones or surrounding fluid. Pancreas: Homogeneous enhancement. No mass, inflammation or ductal dilation. Spleen: No significant abnormality noted. Adrenals: No significant abnormality noted. Kidneys and ureters: Normal enhancement. No mass, hydronephrosis or visualized stone. Stomach and bowel: There is asymmetric masslike thickening of the right side of the rectum measuring 3.5 x 2.0 cm. Moderate to large amounts of stool scattered throughout the colon with diverticulosis. No diverticulitis or obstruction. PELVIS: Appendix: No findings to suggest acute appendicitis. Bladder: No filling defects to suggest mass or large stone. No inflammation. Reproductive: Very small calcified uterine fibroids noted. There is a 3.0 x 1.8 x 2.1 cm partially exophytic right fundal fibroid. Right adnexal calcifications may be vascular and/or ovarian. Appearance benign. ABDOMEN and PELVIS: Intraperitoneal space: No free air. No significant fluid collection. Bones/joints: Chronic L5 spondylolysis with grade 1-2 anterolisthesis of L5 and S1. Moderate facet arthrosis and accentuated lumbar lordosis noted. No acute osseous abnormality. Soft tissues: No significant abnormality noted. Vasculature: Atherosclerotic calcification of the aorta and branches. No aneurysm. Lymph nodes: No pathologically enlarged lymph nodes. IMPRESSION: 1. There is asymmetric masslike right distal rectal thickening. Neoplasm should be excluded. 2. Suspect acute and/or chronic bronchitis and mild pneumonitis in the right lower lobe. ACT 112: Negative or not required by law. Electronically signed by Ana Thao 03-04-2024 5:48 PM Medications Administered Current Inpatient Medications Acetaminophen (Acetaminophen 325 Mg Tab) 650 mg PO Q4H PRN PRN Reason: Pain or Fever Stop: 04/03/24 21:12 Last Admin: 03/06/24 11:00 Dose: 650 mg Aspirin (Aspirin 81 Mg Ectab) 81 mg PO QAM ARMIDA Stop: 04/04/24 08:59 Last Admin: 03/06/24 08:54 Dose: 81 mg Atorvastatin Calcium (Atorvastatin 20 Mg Tab) 20 mg PO QPM ARMIDA Stop: 04/03/24 21:12 Last Admin: 03/05/24 21:25 Dose: 20 mg Donepezil HCl (Donepezil Hcl 10 Mg Tab) 10 mg PO QAM ARMIDA Stop: 04/04/24 08:59 Last Admin: 03/06/24 08:54 Dose: 10 mg Doxycycline Hyclate (Doxycycline Hyclate 100 Mg Cap) 100 mg PO BID ARMIDA Stop: 03/09/24 21:12 Last Admin: 03/06/24 08:54 Dose: 100 mg Enoxaparin Sodium (Enoxaparin Inj 40 Mg/0.4 Ml Syr) 40 mg SQ Q24H ARMIDA Stop: 04/03/24 21:14 Last Admin: 03/05/24 21:24 Dose: 40 mg Escitalopram Oxalate (Escitalopram Oxalate 10 Mg Tab) 5 mg PO DAILY ARMIDA Stop: 04/04/24 08:59 Last Admin: 03/06/24 08:54 Dose: 5 mg Ampicillin Sodium/Sulbactam Sodium (Unasyn) 3,000 mg in 100 mls @ 200 mls/hr IV Q6H ARMIDA Stop: 03/09/24 21:29 Last Infusion: 03/06/24 09:33 Dose: Infused Latanoprost (Latanoprost 0.005% Op Soln 2.5 Ml Btl) 1 drops OP QPM ARMIDA Stop: 04/03/24 21:12 Last Admin: 03/05/24 21:20 Dose: Not Given Losartan Potassium (Losartan Potassium 50 Mg Tab) 50 mg PO QAM ARMIDA Stop: 04/04/24 08:59 Last Admin: 03/06/24 08:54 Dose: 50 mg Memantine (Memantine Hcl 10 Mg Tab) 10 mg PO BID ARMIDA Stop: 04/03/24 21:12 Last Admin: 03/06/24 08:54 Dose: 10 mg Olanzapine (Olanzapine 2.5 Mg Tab) 2.5 mg PO HS ARMIDA Stop: 03/06/24 20:59 Last Admin: 03/05/24 22:59 Dose: 2.5 mg Oxybutynin Chloride (Oxybutynin Chloride Xl 5 Mg Tabcr) 5 mg PO QAM ARMIDA Stop: 04/04/24 08:59 Last Admin: 03/06/24 08:55 Dose: 5 mg Potassium Chloride (Potassium Chloride Crtab 20 Meq Tabcr) 20 meq PO QAM ARMIDA Stop: 04/06/24 08:59 Travoprost (Travoprost Z 0.004% Oph Soln 2.5 Ml Btl) 1 drops OP DAILY ARMIDA Stop: 04/04/24 08:59 Last Admin: 03/06/24 08:55 Dose: 1 drops PG Care Time/CCT Total # of Minutes Spent Total Time Spent with Patient: Total time spent is greater than 50% in coordination of care (as documented) at patient's floor/unit and/or counseling patient: Advanced Care Planning 16711 Advanced Care Planning 30 [place] [address] IN/OBS CONSULT LVL 3,45M Patient Type New Medical Decision Making Moderate Complexity Diagnoses Palliative care by specialist Z51.5 Counseling regarding advanced directives and goals of care Z71.89 Encounter for end of life education, guidance and counseling Delirium R41.0 Additional Codes Advanced Care Planning - 40348 Advanced Care Planning 30 Min: 21144 Advanced Care Planning 30 Min ([id number])
[2024-03-06] MEDS: KETOROLAC TROMETHAMINE 15 MG/ML VIAL IV ONE (13:47)
--- NOTE | 2024-03-06 17:19 | Electrocardiogram Report ---
Test Reason : Blood Pressure : */* mmHG Vent. Rate : 89 BPM Atrial Rate : 89 BPM P-R Int : 110 ms QRS Dur : 86 ms QT Int : 400 ms P-R-T Axes : 61 18 50 degrees QTcB Int : 486 ms Sinus rhythm with short AR Nonspecific ST and T wave abnormality Prolonged QT Abnormal ECG When compared with ECG of 10-Nov-2023 14:15, AR interval has decreased Vent. rate has increased by 31 bpm Nonspecific T wave abnormality no longer evident in Inferior leads T wave inversion no longer evident in Anterior leads Confirmed by Audi Smith ([id number]) on 03/06/2024 5:19:32 PM Referred By: Cherrie Montanez Confirmed By: Audi Smith
--- NOTE | 2024-03-06 17:45 | Hospitalist Progress Note ---
Date of Service March 06, 2024 Assessment & Plan (1) Altered mental status: Plan: [place] is a 78-year-old female with PMH of metabolic encephalopathy, HLD, depression, anxiety, dementia, and memory deficits. She presented on 03/04 for increased confusion, agitation, and altered mental status. H/o Alzheimer's dementia, and she is unable to provide history on arrival. Patient's daughter (Kris) at bedside provides history: visual hallucinations started the morning of 03/04; acute change in cognitive baseline. Suspected Toxic vs. Metabolic encephalopathy Suspect this may be secondary to Bactrim Rx prescribed on 02/26 for UTI, aspirati on pneumonia noted on CXR, and/or lack of sleep recently CXR noted mild RLL opacity suggestive of pneumonia or aspiration pneumonitis No leukocytosis; PCT WNL; non-hypoxic on RA. Low-grade fever of 100.0 F on 03/[address] showed cerebral atrophy but no acute changes Alzheimer's dementia at baseline, at increased risk for hospital associated delirium. Maintain delirium precautions Patient continues to remain lethargic, family requested palliative care consult Family would like completion of treatment for pneumonia, then will evaluate patient's status and possibly transition to hospice at home. Plan is for patient to return home after discharge from the hospital, where she has 24/7 caregivers (2) Aspiration pneumonia: Plan: Noted on CXR; mild Remains stable on room air Continue Unasyn 3 g Q6H and doxycycline 100 mg BID through 03/09/24 Speech therapy consulted recommend diet as tolerated, general aspiration precautions, assist patient with mouth care twice daily. Reported that daughter is not interested in VFSS/having swallowing addressed at this time (3) Abdominal pain: Plan: Concern for abdominal tenderness on exam CT A/P noted asymmetric masslike right distal rectal thickening. Discussed with family on admission workup deferred for now. Could be considered in outpatient setting to rule out neoplasm (4) UTI (urinary tract infection): Plan: Rx bactrim on 02/27/24 UA clean on 03/04 Urine culture preliminarily negative (5) Dementia: Plan: Continue home medications Agitated at night resulting in significant lack of sleep. Will trial Zyprexa 5 mg HS Plan Updated daughter at bedside Consulted palliative care and discussed case with provider Ordered IV fluid maintenance Increased Zyprexa Repleted potassium VTE PPx: Lovenox 40 mg SQ q24h CODE STATUS: DNR/DNI Admission and Anticipated Discharge Date Admission Date: March 04, 2024 Supervising Physician Co-Signing Physician Notes Attending Attestation - Chart reviewed, care plan d/w MANSI Vicente. I agree w/ the williamson components of her documentation. Casey Davis MD Subjective Patient seen and evaluated at bedside with her daughter and granddaughter present. She remains lethargic but does arouse to verbal stimuli. When she does respond, she is pleasantly confused. She has a moist nonproductive cough intermittently. Most of the conversation was with her family members present. Daughter reports patient did not sleep well last night and was up a lot of the night. We further discussed their meeting with palliative care and their desire to have [place] return home, likely will transition to hospice at home. All questions and concerns were answered to the best my ability. Physical Exam Physical Exam: General: Lethargic, mumbles intermittently, able to follow some commands, slept most of the day. Cardiac: Regular rate and rhythm without murmurs gallops or rubs. Pulm: Poor respiratory effort but clear to auscultation bilaterally without wheezes, rales or rhonchi. Intermittent moist cough. No respiratory distress. 90% on room air. Abdominal: Soft, nondistended, nontender. Bowel sounds present. Neuro: A&O x1 (self). No focal neurological deficits. Results & Data Results & Data Vital Signs (Past 12 Hours) Vital Signs Temp Pulse Pulse Resp BP BP Pulse Ox 03/06/24 15:24 100.0 F H 59 L 20 90/53 L 90 03/06/24 13:02 71 03/06/24 11:53 98.1 F 65 18 107/71 93 03/06/24 09:25 03/06/24 07:31 97.9 F 60 18 129/77 94 03/06/24 05:45 75 O2 Del Method 03/06/24 15:24 Room Air 03/06/24 13:02 03/06/24 11:53 Room Air 03/06/24 09:25 Room Air 03/06/24 07:31 Room Air 03/06/24 05:45 Laboratory Results Reviewed CBC Reviewed BMP Reviewed blood cultures and urine culture PG Care Time/CCT Total # of Minutes Spent Total Time Spent with Patient: Total time spent is greater than 50% in coordination of care (as documented) at patient's floor/unit and/or counseling patient: Coding Level of Care Code 28649 SUB INP/OBS CARE 350MIN Diagnoses Altered mental status R41.82 Aspiration pneumonia J69.0 Abdominal pain R10.9 UTI (urinary tract infection) N39.0 Dementia F03.90
[2024-03-06] MEDS: D5W AND 1/2NSS 1,000 ML IV SCH (18:13)
[2024-03-06] MEDS: OLANZapine 5 MG TABLET PO SCH (20:37)
[2024-03-06] MEDS: KETOROLAC TROMETHAMINE 15 MG/ML VIAL IV PRN (20:38)
[2024-03-07 07:38] VITALS: O2SAT 94
[2024-03-07 07:48] LABS: Basophils # (auto) 0.04 K/uL (0.00-0.20); Basophils % (auto) 0.6 %; Eosinophils # (auto) 0.28 K/uL (0.00-0.50); Hematocrit (blood only) 36.4 % (37.0-47.0); Hemoglobin 12.4 g/dl (12.0-16.0); Immature Granulocytes # (auto) 0.02 K/uL (0.01-0.20); Immature Granulocytes % (auto) 0.3 %; Lymphocytes # (auto) 1.46 K/uL (1.20-3.40); Lymphocytes % (auto) 20.9 %; Mean Corpuscular Hemoglobin 32.1 pg (25.0-34.0); Mean Corpuscular Hgb Conc 34.1 g/dL (32.0-36.0); Mean Corpuscular Volume 94.3 fL (80.0-100.0); Mean Platelet Volume 9.6 fL (9.4-12.4); Monocytes # (auto) 0.48 K/uL (0.11-0.59); Monocytes % (auto) 6.9 %; Neutrophils % (auto) 67.3 %; Platelet Count 218 K/uL (130-400); RDW Coefficient of Variation 13.3 % (11.5-14.5); RDW Standard Deviation 45.9 fL (36.4-46.3); Red Blood Count 3.86 M/uL (4.20-5.40); White Blood Count 6.98 K/ul (4.8-10.8)
[2024-03-07 07:59] LABS: BUN Creatinine Ratio 10.9 (10-20); Calcium 8.3 mg/dl (8.6-10.3); Creatinine Clr Calc Pharmacy 71.9 ml/min; Potassium 3.3 mmol/L (3.5-5.1)
[2024-03-07] MEDS: POTASSIUM CHLORIDE CRTAB 20 MEQ TABCR PO SCH (09:00)
[2024-03-07 11:18] VITALS: BP 189/119; PULSE 75; RESP 16; TEMP 98.4
[2024-03-07] MEDS: KETOROLAC TROMETHAMINE 15 MG/ML VIAL IV ONE (11:58)
[2024-03-07] MEDS: ONDANSETRON INJ 2 MG/ML 2 ML VIAL IV STA (11:59)
--- NOTE | 2024-03-07 14:12 | Palliative Care Progress Note ---
Date of Service March 07, 2024 Assessment & Plan (1) Encounter for end of life education, guidance and counseling: (2) Palliative care by specialist: Plan Pt continues to lack decisional capacity. Met with pt's daughter Emeli at bedside. She shared that pt is expected to be discharged to home today. She share dthat she had spoken with her sister Kris last evening and is in agreement to continue current level of care at [facility] and when pt has further cognitive decline they would like to transition to comfort directed care at home. Discussed follow up with palliative care for assistance in navigation in outpt clinic. They are in agreement. Pt will be scheduled for telephonic follow up with Dr Wheeler within two weeks of discharge. Admission and Anticipated Discharge Date Admission Date: March 04, 2024 Subjective Assessed pt at bedside. she is more awake today and c/o aches in her hips and lower back (chronic). She remains confused with occasional incoherent speech. Daughter is at bedside and shared that the pt's pain is chronic and has been managed well with NSAIDs. Review of Systems Review of Systems: All systems reviewed & are unremarkable except as noted in HPI & below Musculoskeletal: c/o nonspecific ache in lower back and hips. Dtr states this is chronic. Physical Exam Physical Exam: General- pleasantly confused, not in distress, on 4L NC O2 Head- atraumatic/normocephalic Eyes- PERRL, EOMI, anicteric ENT- oropharynx clear, MMM Neck- supple, no JVD, no adenopathy, no thyromegaly; carotids +2/2, no bruits appreciated Lungs- b/l rales and rhonchi, good air entry BL Heart- normal rate, regular rhythm; no murmur, no gallop, no rub appreciated Abdomen- normal bowel sounds, nondistended, soft, nontender, no masses or hepatosplenomegaly Extremities- no pretibial edema, no calf tenderness; peripheral pulses intact Neuro- decreased hearing otherwise CN 2-12 grossly intact; motor 5/5 marva aterally;sensation 100% on all extremities; no other gross focal neurologic deficits Skin- warm & dry Neuro: Patient is lethargic, mostly sleeping but does arouse to verbal stimuli, pleasantly confused with incoherent thought processes; fluent speech; no facial droop; Results & Data Vital Signs (Past 12 Hours) Vital Signs Temp Pulse Pulse Resp BP BP Pulse Ox 03/07/24 11:17 36.9 C 75 16 189/119 H 94 03/07/24 09:27 61 03/07/24 07:45 03/07/24 07:38 37.3 C 68 12 132/78 94 03/07/24 03:40 36.9 C 60 16 154/80 H 90 O2 Del Method 03/07/24 11:17 Room Air 03/07/24 09:27 03/07/24 07:45 Room Air 03/07/24 07:38 Room Air 03/07/24 03:40 Room Air Laboratory Results Abnormal lab results 03/07/24 Range/Units 07:17 RBC 3.86 L (4.20-5.40) M/uL Hct 36.4 L (37.0-47.0) % Potassium 3.3 L (3.5-5.1) mmol/L Chloride 111 H (98-107) mmol/L Creatinine 0.55 L (0.6-1.2) mg/dl Calcium 8.3 L (8.6-10.3) mg/dl Medications Administered Current Inpatient Medications Acetaminophen (Acetaminophen 325 Mg Tab) 650 mg PO Q4H PRN PRN Reason: Pain or Fever Stop: 04/03/24 21:12 Last Admin: 03/07/24 09:45 Dose: 650 mg Aspirin (Aspirin 81 Mg Ectab) 81 mg PO QAM [facility] Stop: 04/04/24 08:59 Last Admin: 03/07/24 08:56 Dose: 81 mg Atorvastatin Calcium (Atorvastatin 20 Mg Tab) 20 mg PO QPM ARMIDA Stop: 04/03/24 21:12 Last Admin: 03/06/24 20:37 Dose: 20 mg Donepezil HCl (Donepezil Hcl 10 Mg Tab) 10 mg PO QAM [facility]IDA Stop: 04/04/24 08:59 Last Admin: 03/07/24 08:56 Dose: 10 mg Doxycycline Hyclate (Doxycycline Hyclate 100 Mg Cap) 100 mg PO BID [facility]IDA Stop: 03/09/24 21:12 Last Admin: 03/07/24 08:56 Dose: 100 mg Enoxaparin Sodium (Enoxaparin Inj 40 Mg/0.4 Ml Syr) 40 mg SQ Q24H ARMIDA Stop: 04/03/24 21:14 Last Admin: 03/06/24 20:37 Dose: 40 mg Escitalopram Oxalate (Escitalopram Oxalate 10 Mg Tab) 5 mg PO DAILY [facility]IDA Stop: 04/04/24 08:59 Last Admin: 03/07/24 08:55 Dose: 5 mg Ampicillin Sodium/Sulbactam Sodium (Unasyn) 3,000 mg in 100 mls @ 200 mls/hr IV Q6H [facility]IDA Stop: 03/09/24 21:29 Last Infusion: 03/07/24 09:46 Dose: Infused Latanoprost (Latanoprost 0.005% Op Soln 2.5 Ml Btl) 1 drops OP QPM ARMIDA Stop: 04/03/24 21:12 Last Admin: 03/06/24 20:36 Dose: Not Given Losartan Potassium (Losartan Potassium 50 Mg Tab) 50 mg PO QAM ARMIDA Stop: 04/04/24 08:59 Last Admin: 03/07/24 08:56 Dose: 50 mg Memantine (Memantine Hcl 10 Mg Tab) 10 mg PO BID ARMIDA Stop: 04/03/24 21:12 Last Admin: 03/07/24 08:56 Dose: 10 mg Olanzapine (Olanzapine 5 Mg Tablet) 5 mg PO HS ARMIDA Stop: 04/05/24 20:59 Last Admin: 03/06/24 20:37 Dose: 5 mg Oxybutynin Chloride (Oxybutynin Chloride Xl 5 Mg Tabcr) 5 mg PO QAM [facility]IDA Stop: 04/04/24 08:59 Last Admin: 03/07/24 08:56 Dose: 5 mg Potassium Chloride (Potassium Chloride Crtab 20 Meq Tabcr) 20 meq PO QAM [facility]IDA Stop: 04/06/24 08:59 Last Admin: 03/07/24 09:00 Dose: 20 meq Travoprost (Travoprost Z 0.004% Oph Soln 2.5 Ml Btl) 1 drops OP DAILY ARMIDA Stop: 04/04/24 08:59 Last Admin: 03/07/24 08:57 Dose: 1 drops PG Care Time/CCT Total # of Minutes Spent Total Time Spent with Patient: Total time spent is greater than 50% in coordination of care (as documented) at patient's floor/unit and/or counseling patient: C[place] [address] SUB INP/OBS CARE 2/35MIN Patient Type Established History Problem Focused Exam Problem Focused Medical Decision Making Moderate Complexity Diagnoses Encounter for end of life education, guidance and counseling Palliative care by specialist Z51.5
--- NOTE | 2024-03-07 16:34 | Discharge Summary ---
Discharge Summary Date of Service March 07, 2024 Principal Dx & Hospital Course #1 = Principal Diagnosis (1) Altered mental status: [place] is a 78-year-old female with PMH of metabolic encephalopathy, HLD, depression, anxiety, dementia, and memory deficits. She presented on 03/04 for increased confusion, agitation, and altered mental status. H/o Alzheimer's dementia, and she is unable to provide history on arrival. Patient's daughter (Kris) at bedside provides history: visual hallucinations started the morning of 03/04; acute change in cognitive baseline. Suspect this may be secondary to Bactrim Rx prescribed on 02/26 for UTI, aspiration pneumonia noted on CXR, lack of sleep recently, and/or delirium superimposed on dementia; could also be acute decline in dementia Suspected Toxic vs. Metabolic encephalopathy CXR noted mild RLL opacity suggestive of pneumonia or aspiration pneumonitis No leukocytosis; PCT WNL; non-hypoxic on RA; Head CT showed cerebral atrophy but no acute changes Alzheimer's dementia at baseline, at increased risk for hospital associated delirium Palliative care consulted; will continue to follow patient in outpatient setting Family would like completion of treatment for pneumonia, then will evaluate patient's status and possibly transition to hospice at home through PCP/palliative care Patient was discharged home with 24/7 caregivers on 03/07/2024. Patient remained lethargic most of her hospital stay. On day of discharge, she was more awake though still confused (2) Aspiration pneumonia: Noted on CXR; mild; stable on room air Treated with Unasyn and Doxy while inpatient; discharged on Augmentin and Doxy through 03/09/2024 for total of 5-day treatment course Speech therapy consulted recommend diet as tolerated, general aspiration precautions, assist patient with mouth care twice daily. Reported that daughter is not interested in VFSS/having swallowing addressed at this time (3) Abdominal pain: Concern for abdominal tenderness on exam CT A/P noted asymmetric masslike right distal rectal thickening. Discussed with family on admission workup deferred for now. Could be considered in outpatient setting to rule out neoplasm Chronic back and hip pain - daughter reports this is managed with NSAIDs at home Improvement in pain with Toradol - discharged with Toradol 10 mg QID x 5 days (4) UTI (urinary tract infection): Rx bactrim on 02/27/24 UA clean on 03/04 Urine culture negative (5) Dementia: Continue home medications Agitated at night resulting in significant lack of sleep - trial of Zyprexa 5 mg HS with improvement Continue Zyprexa 5 mg HS, with 2.5 mg available q6h PRN for agitation/anxiety (6) Rectal abnormality: seen incidentally on CT abd/pelvis in light of transitioning to hospice in the near-future further endoscopic work- up deferred Plan CODE STATUS: DNR/DNI Dispo: Discharged home with 12/09 caregivers. Family will transition patient onto hospice when appropriate in the outpatient setting. Notes For Next Care Provider Palliative care consulted during this hospitalization. Daughters intend to tr ansition patient to hospice when appropriate outpatient. Palliative care will continue to follow outpatient, also getting set up with Sushma via palliative care. Difficult to determine if lethargy and AMS due to infection/delirium or if this is an acute decline in her dementia. Medication Changes From Visit Augmentin and Doxy through 03/09/2024 Zyprexa 5 mg at bedtime, Zyprexa 2.5 mg as needed agitation/anxiety Toradol 10 mg 4 times daily x 5 days Admission HPI Per Admitting Provider [place] is a 78-year-old female with PMH of metabolic encephalopathy, HLD, depression, anxiety, dementia, and memory deficits. She presented on 03/04 for increased confusion, agitation, and altered mental status. Patient does have a history of Alzheimer's dementia, and is unable to provide history on arrival. Patient's daughter (Kris) is at the bedside and provides history. She reports that the patient started having visual hallucinations this morning, and complaining of "things in bed with her" as well as "things on the wall". Daughter reports this is an acute change in her cognitive baseline. Patient lives by herself, but does have private care (12/09 family and friends). No fever, chills, or night sweats reported at home. However, daughter does report decreased appetite. Patient was recently started on Bactrim on 02/26 for a UTI; prior to this, she was having symptoms of confusion, ambulatory dysfunction, and feeling unsteady on her feet. Daughter reports this is the normal presentation that she develops whenever she has a UTI. She does not ambulate with a cane or walker at baseline. Patient took her regular morning medicines today; only recent change is that she was taken off HCTZ. Additionally, patient does note mild abdominal tenderness to palpation; daughter reports no history of peptic ulcers or bowel obstructions. Patient denies smoking or tobacco use. NKDA. Patient's vitals are stable at time of admission. ED course: Doxycycline 100 mg IV Metronidazole 500 mg IV Ceftriaxone 2000 mg IV NSS 1500 mL IV Difficult to obtain ROS at this time given patient's underlying dementia/acute confusion. Discharge Exam General: More awake today but still fairly sleepy. Mumbles intermittently, able to follow some commands, pleasantly confused. Cardiac: Regular rate and rhythm without murmurs gallops or rubs. Pulm: Poor respiratory effort with bibasilar rhonchi. Intermittent moist cough. No respiratory distress. 94% on room air. Abdominal: Soft, nondistended, nontender. Bowel sounds present. Neuro: A&O x1 (self). No focal neurological deficits. Discharge Plan Discharge Items Patient Disposition: Home - Self-Care Reason For Visit: ASPIRATION PNA, AMS Discharge Diagnosis: Aspiration pneumonia, lethargy Activity: Per Instructions section Non-emergency contact: Primary Care Provider Call non-emergency contact if: you have any medication questions and your symptoms worsen Follow-up/Referrals: Cherrie Montanez MD [Primary Care Provider] - 03/14/24 11:30 am Diet: Regular Addtl Attending Provider Instructions: [place], You were admitted to the hospital because of increased confusion and agitation. It was found that you have aspiration pneumonia on chest x-ray. You were treated with IV antibiotics and will continue oral antibiotics at home. You were also seen by the Palliative Care provider who will continuing with assistance in transitioning to hospice if that is what is decided at home. Upon discharge from the hospital: * Take Augmentin (oral antibiotic) twice daily through 03/09/2024. This is to treat the pneumonia. * Take doxycycline (oral antibiotic) twice daily through 03/09/2024. This is to treat the pneumonia. * Take Zyprexa 5 mg at bedtime. * Take Zyprexa 2.5 mg NEEDED for agitation / anxiety. * Take Toradol 10 mg 4 times daily. Unfortunately, I was only able to prescribe 5 days worth of this, so please call your PCP or palliative care for further prescriptions. * Continue your other medications as prescribed. * Follow-up with palliative care as directed. Please call their office if you have any questions or concerns. * Follow-up with your PCP in 1 week. It was a pleasure taking care of you while you were in the hospital, Xiomara Vicente PA-C Pending Studies at Discharge: No Stand-Alone Forms: My [facility], Smoking Cessation Medications and DC Order Prescriptions: New doxycycline hyclate 100 mg Capsule 100 mg PO BID Qty: 5 0RF olanzapine 5 mg Tablet 5 mg PO HS Qty: 30 0RF amoxicillin-pot clavulanate 875-125 mg tablet 1 tab PO BID Qty: 5 0RF olanzapine [Zyprexa] 2.5 mg tablet 2.5 mg PO Q6H PRN (Reason: agitation/anxiety) Qty: 14 0RF ketorolac 10 mg tablet 10 mg PO QID Qty: 20 0RF Continued triamcinolone acetonide 0.1 % cream 1 applic topical BID PRN (Reason: itching) Qty: 80 5RF losartan 50 mg tablet 50 mg PO QAM Qty: 90 3RF memantine 10 mg tablet 10 mg PO BID 90 Days Qty: 180 3RF acetaminophen [Tylenol Extra Strength] 500 mg tablet 500 mg PO Q6H PRN (Reason: fever) Qty: 60 0RF atorvastatin 20 mg tablet 20 mg PO QPM Qty: 90 3RF oxybutynin chloride 5 mg tablet extended release 24hr 5 mg PO QAM Qty: 90 3RF ibuprofen 200 mg tablet 200 mg PO Q6H PRN (Reason: Pain) donepezil 10 mg tablet 10 mg PO QAM Qty: 90 3RF aspirin 81 mg Tablet,Delayed Release (Dr/Ec) 81 mg PO QAM No Action escitalopram oxalate 5 mg tablet 5 mg PO DAILY Qty: 90 1RF Discharge Orders: Discharge Order (Routine); Ordered 03/07/24 Ordered By: Xiomara Feng/Other Patient Handouts: What Is Palliative Care, Hospice Managing Pain, Hospice- Caring for Your Loved One Admission Data Admit Date/Time: 03/04/24 15:45 Attending Provider: Casey Davis Admit Provider: Casey Ceja Primary Care Provider: Cherrie Montanez Other Providers: Dedrick Montoya Other Interventions: Discharge Summary Assessment (RN) Last Done: 03/07/24 14:18 Hospital Stay Data Consultations 03/04/24 14:48 ED Decision to Admit Stat 03/06/24 09:50 Consult Palliative Care Routine Diagnostic Imagining Performed 03/04/24 16:24 CT head/brain wo con Stat 03/04/24 16:25 CT Abd and Pelvis [CT abd pelvis IV con only] Stat Pending Results Patient Have Any Pending Studies at Discharge: No Discharge Instructions Given to Patient (Per Discharging Provider) [place], You were admitted to the hospital because of increased confusion and agitation. It was found that you have aspiration pneumonia on chest x-ray. You were treated with IV antibiotics and will continue oral antibiotics at home. You were also seen by the Palliative Care provider who will continuing with assistance in transitioning to hospice if that is what is decided at home. Upon discharge from the hospital: * Take Augmentin (oral antibiotic) twice daily through 03/09/2024. This is to treat the pneumonia. * Take doxycycline (oral antibiotic) twice daily through 03/09/2024. This is to treat the pneumonia. * Take Zyprexa 5 mg at bedtime. * Take Zyprexa 2.5 mg NEEDED for agitation / anxiety. * Take Toradol 10 mg 4 times daily. Unfortunately, I was only able to prescribe 5 days worth of this, so please call your PCP or palliative care for further prescriptions. * Continue your other medications as prescribed. * Follow-up with palliative care as directed. Please call their office if you have any questions or concerns. * Follow-up with your PCP in 1 week. It was a pleasure taking care of you while you were in the hospital, Xiomara Vicente PA-C Supervising Physician Co-Signing Physician Notes Attending Attestation & Discharge Note: Chart reviewed, discharge care plan d/w MANSI Vicente. I agree w/ the williamson components of her documentation with the following addition -- * rectal abnormality on CT abd/pelvis 78yo female with Alzheimer's dementia who presented with worsening confusion/altered mental status. Imaging here showed evidence of RLL pneumonia. Treated with IV unasyn & doxycycline; transitioned to PO augmentin/doxy at time of discharge. Very possible that the RLL pneumonia was the cause of her acute metabolic encephalopathy/delirium. In addition, CT abd/pelvis incidentally showed a rectal abnormality -- specifically, radiology saw "asymmetric masslike right distal rectal thickening" In light of transitioning to hospice in the near-future will defer further work- up. Patient & her family met with palliative care during the hospitalization and will follow-up with them post-discharge. Casey Davis MD Total Time Total Time Spent Total Time Spent (In Minutes): Greater than 30 minutes spent completing this discharge process including direct patient care, medication reconciliation, documentation, review of labs and images, and coordination of care. Coding Level of Care Code 82298 INP/OBS DISCH >30 MIN Diagnoses Altered mental status R41.82 Aspiration pneumonia J69.0 Abdominal pain R10.9 UTI (urinary tract infection) N39.0 Dementia F03.90 Rectal abnormality K62.9
== END 2024-03-07 15:13 | disposition home or self-care (01) | DRG 177 ==
LOC: ED 11:52 → SUATTDRO 15:45 → EDINP 15:45 → 2N 20:38
DX: Z51.5 Encounter for palliative care; Z86.16 Personal history of COVID-19; F32.A Depression, unspecified; G93.41 Metabolic encephalopathy; G92.8 Other toxic encephalopathy; M54.50 Low back pain, unspecified; T37.0X5A Adverse effect of sulfonamides, initial encounter; N39.0 Urinary tract infection, site not specified; F02.811 Dementia in other diseases classified elsewhere, unspecified severity, with agitation; Z79.82 Long term (current) use of aspirin; Z66 Do not resuscitate; G30.9 Alzheimer's disease, unspecified; F41.9 Anxiety disorder, unspecified; R93.3 Abnormal findings on diagnostic imaging of other parts of digestive tract; J69.0 Pneumonitis due to inhalation of food and vomit; G89.29 Other chronic pain; Z79.899 Other long term (current) drug therapy; R10.9 Unspecified abdominal pain; M25.552 Pain in left hip; E78.5 Hyperlipidemia, unspecified; M25.551 Pain in right hip